=== PATIENT | male | born 1985 | race Caucasian/White ===

== ENCOUNTER 2016-09-20 22:26 | Emergency (ER) | payer MEDICAID ==
[~2016-09-20] VITALS: Ht 188 cm; Wt 129.7 kg
[~2016-09-20 22:26] MED LIST: ATIVAN GENERIC0.5 MG PO; CLONAZEPAM0.5 M1 PO; DULOXETINE HYDR20 MG PO; DULOXETINE60 MG PO; FLAGYL500 M1 PO; LISINOPRIL20 MG PO; OMEPRAZOLE20 MG PO; PAROXETINE HCL30 MG PO; PROTONIX 40MG T40 MG PO; QUETIAPINE FUM300 M1 PO; ULORIC80 MG PO; ZANTAC 150150 MG PO; ZOLOFT100 MG PO
--- NOTE | 2016-09-20 22:46 | Emergency Room Report ---
History of Present Illness Time Seen by [id number] Presenting Problem in Triage Pt arrived:Walked Presenting Problem:C/O LOW BACK PAIN SINCE 09/18/16 AND WAS SEEN BY ADAL AGUILAR AND TREATED FOR MUSCLE STRAIN. 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 Onset of symptoms date/time:09/18/16/ or onset unknown for:MEDICAL HX UNKNOWN Treatment Prior to Arrival: SEEN BY ADAL AGUILAR OIL WELL SERVICES SUPERVISOR Provided by:NURSE Sepsis Risk Assessment: Temp: 98.2 B/P: 146/91 MAP: 109 Pulse: 95 Resp: 20 Recent fever? N Clinical Suspician of Infection? N Mental Status: 1 - Regular (Normal Baseline) Sepsis Risk:Possible Sepsis Risk Have you (or family members/close friends) recently traveled outside the [place]? N If Yes, where/when: Have you had exposure to infectious disease within the past month? N TB? Other? Specify: Source patient, RN notes reviewed, family, old records Exam Limitations no limitations Comment rt flank pain over the last 2 days with no fever or rash and no trauma and no relief with meds at home - pt was seen by pcp wednesday for this - pt with 1 episode of hematuria- no hx of kidney stone Cardiac Chest Pain Chest pain indicative of cardiac No Timing/Duration this evening Severity moderate ALLERGIES Coded Allergies: codeine (THROAT SWELL/HIVES 11/04/15) Home Medications Active Scripts Pantoprazole Sodium (Protonix 40MG TAB) 40 MG PO DAILY #15 TAB Prov: 12/15/14 Reported Medications PAROXETINE HCL (Paroxetine HCl) 15 MG PO DAILY #30 TAB Febuxostat (Uloric) 80 MG PO DAILY #30 Lorazepam (Ativan) 0.5 MG PO BID #90 History Medical History General CAD? No Angina: No MS: No Hypertension? Yes Hyperlipidemia? No CHF? No DVT? No PE? No COPD? No Asthma? No Anemia? No GERD? Yes Gastric ulcers? No GI Bleed? No Hernia? No Thyroid Problems? No Hypothyroidism? No CVA? No Seizures? No Diabetes? No Insulin Dependent: No Insulin Pump: No Home FSBS? No Renal Insuffiency? No End Stage Renal Disease? No UTI? No Stones? No BPH? No GB Disease: No Nephritic Syndrome? No Asplenia? No Hepatitis? No Sickle Cell Disease? No Arthritis? No Migraines? No Cataracts? No Glaucoma? No MRSA? No HIV? No TB? No Anxiety? Yes Depression? Yes Cancer? No More? Yes Additional hx: GOUT Immunization Hx DT/Tetanus > 10 Years Ago Surgical Hx Previous Surgery?Y [place] Tooth Extraction Social History Smoking Hx Smoker: Never Smoker Tobacco: No Alcohol Alcohol: No Drugs none Review of Systems All Other Systems Reviewed and Negative Constitutional denies fever Eyes denies drainage ENT denies: ear pain, epistaxis. Respiratory denies cough, denies shortness of breath, denies wheezing Cardiovascular denies chest pain, denies palpitations, denies syncope Gastrointestinal see HPI, denies diarrhea, nausea, denies vomiting Genitourinary see HPI, hematuria. denies: dysuria, frequency, hesitancy. Musculoskeletal see HPI, back pain, denies joint pain, denies joint swelling, denies neck pain Skin denies rash Psychiatric/Neurological denies seizure Physical Exam Vital Signs Vital Signs Date Time Temp Pulse Resp B/P Pulse O2 O2 Flow FiO2 Ox Delivery Rate 09/20 2322 96 20 135/71 95 09/20 2257 20 09/20 2232 98.2 95 20 146/91 97 - WBC >12,000 or <4,000 or 10% bands? 2 or more SIRS Criteria Met? B/P:135/71 MAP:109 Creatinine >2.0? UA output<0.5ml/kg/hr for 2 hrs? Platelet count >100,000? Lactate >2.0mmol/1? INR >1.2 or PTT > than 60 sec? Evidence of Organ Dysfunction? Provider documented clinical suspician of infection? N Sepsis Criteria Count: 2 Sepsis Risk: Possible Sepsis Risk General Appearance no apparent distress Eye Exam - bilateral eye PERRL, bilateral eye EOMI Ear, Nose, Throat normal ENT inspection Neck supple Respiratory Status No: respiratory distress. Cardiovascular regular rate/rhythm Peripheral Pulses Pulses normal Yes Gastrointestinal soft, no organomegaly, no pulsatile mass, no guarding, no rebound Back no CVA tenderness, no vertebral tenderness, bowel/bladder continent, gait normal, strt leg raising(R)-ABNL, decreased range of motion Extremities normal inspection Strength 4 Upper Ext (L), 4 Upper Ext (R), 4 Lower Ext (L), 4 Lower Ext (R) Neurologic alert, electric installer II-XII nml as tested, no motor/sensory deficits Reflexes Reflexes normal No Mental status normal mood/affect Skin intact, no rash cons.w/shingles Medical Decision Making LABS/Meds/Orders Pt receiving controlled substance in ED? No Results/Orders Laboratory Tests 09/20/162250: Sodium 139, Potassium 3.7, Chloride 100, Carbon Dioxide 28, BUN 9, Creatinine 1.1, Estimated Creat Clear 175, Estimated GFR (MDRD) 77, Glucose 137 H, Calcium 9.0, Total Bilirubin 0.4, AST 24, ALT 55, Alkaline Phosphatase 86, Total Protein 9.8 H, Albumin 4.7, Globulin 5.1 H, Albumin/Globulin Ratio 0.9 L, WBC 9.3, RBC 5.63, Hgb 15.2, Hct 45.7, MCV 81.2 L, RDW 14.4, Plt Count 331, MPV 7.5, Gran % 73.9, Gran # 6.9, Lymphocytes % 22.0, Monocytes % 3.4, Eosinophils % 0.2, Basophils % 0.5, Lymphocytes # 2.1, Monocytes # 0.3, Eosinophils # 0.0, Basophils # 0.0, PUBS MCHC 33.2, MCH 27.0 09/20/162242: Urine Color YELLOW, Urine Appearance SL CLOUDY, Urine pH 5.5, Ur Specific [place] >= 1.030, Urine Protein NEGATIVE, Urine Ketones NEGATIVE, Urine Blood 3+ H, Urine Nitrate NEGATIVE, Urine Bilirubin NEGATIVE, Urine Urobilinogen 0.2, Ur Leukocyte Esterase NEGATIVE, Urine RBC 20-50, Urine WBC OCC, Urine Mucus 4+, Urine Glucose NEGATIVE Current Medication Orders Sig/Jaydon Start time Last Medication Dose Route Stop Time Status Admin Ketorolac 30 MG ONCE ONE 09/20 2299 DC 09/20 Tromethamine IV 09/20 Ondansetron HCl 4 MG ONCE ONE 09/20 2299 DC 09/20 IV 09/20 Ketorolac 0 .STK-MED ONE 09/21 2255 DC Tromethamine .ROUTE Ondansetron HCl 0 .STK-MED ONE 09/20 2254 DC .ROUTE Sodium Chloride 10 ML PRN PRN 09/20 2244 AC IV 09/22 2243 Orders Procedure Date/time Status DIET-NOTHING BY MOUTH 09/[address] ABD & PELVIS W/O CONTRAST 09/[address] ABD/PELVIS REQ 09/20 2244 Active IV SALINE LOCK 09/20 2244 Active URINALYSIS/COMPLETE 09/20 2244 Complete CBC WITH AUTO DIFF 09/20 2244 Complete CHEM 12 PROFILE 09/20 2244 Complete XRAY/CT/US XRAY/CT/US CT abdomen, pelvis CT interpretation by discussed w/radiologist Time results known: 2350 CT Results abnormal Departure Departure Time of Disposition 2350 Disposition DC Home or Self Care(routine) Clinical Impression Primary Impression: Lumbar disc disease with radiculopathy Secondary Impressions: Hematuria Qualifiers: Hematuria type: asymptomatic microscopic Qualified Code: R31.21 - Asymptomatic microscopic hematuria Condition STABLE Referrals ADAL SPARROW APRN (Family) Patient Instructions DI for Low Back Pain Additional Instructions use meds and see pcp for follow up Discharge Counseling Counseled pt/family regarding diagnosis, test results, medications/RX, follow up needs Prescriptions Current Visit Scripts Prednisone (Prednisone 20MG) 20 MG PO BID #10 TAB ED Critical Care Critical Care No at 2519
[2016-09-20 22:51] LABS: URINE BILIRUBIN - DIPSTICK NEGATIVE (NEG); URINE BLOOD 3+ (NEG)
[2016-09-20 23:00] LABS: HEMOGLOBIN 15.2 g/dL (14.1-18.0); LYMPH # 2.1 K/mm3 (0.7-4.5)
[2016-09-20] MEDS ORDERED: PREDNISONE 20MG20 MG PO (23:58)
[2016-09-21 00:25] VITALS: BP 128/71
--- NOTE | 2016-09-21 06:29 | RADIOLOGY REPORT PS360 ---
CT ABD PELVIS W/O CONTRAST CLINICAL INDICATION: Right flank pain R-FLANK PAIN ORDERING PHYSICIAN: Ian Thorne MD PATIENT AGE: 31 years COMPARISON: 08/24/2016 TECHNIQUE: Axial images obtained with sagittal and coronal reformats. PROCEDURE: Oral Contrast: None IV Contrast: None . FINDINGS: Lower thorax: Minimal fibrotic changes are present in the left lung base. Calcified granulomas are present in the left lower lobe. Abdomen and pelvis: Diffuse fatty liver involvement. No focal space-occupying lesions of the liver apparent. The spleen is slightly enlarged at 14 cm. The adrenal glands, pancreas, and gallbladder are unremarkable. Scattered small lymph nodes present in the mesentery's. No renal calculi or hydronephrosis. No ureteral calculi. Unremarkable urinary bladder. No intestinal obstruction or free air. Unremarkable appendix. No evidence of diverticulitis. No pelvic mass or focal inflammatory change. Tiny umbilical hernia containing fat. No acute bony anomalies. Broad-based bulging disc eccentric to the right at L5-S1 IMPRESSION: No acute intra-abdominal or pelvic pathology.
--- OUTSIDE RECORDS SUMMARY | 2016-09-21 20:29 | External Medical Summary Rpt ---
Author Author , TANYA MARTÍNEZ Address Unknown Phone [email or web address] Care Team Providers Care Web Application Dev Specialist Name Role Phone BELEN GARCIA, BEELN Unavailable Unavailable [facility] REECE ALL, REECE ALL Unavailable Unavailable [facility] Unavailable Unavailable SERVICE, [facility] Unavailable Unavailable PHYSICIAN PRA, [facility] PHYSICIAN PRA [facility], Unavailable Unavailable [facility] ARNAUD AGNIESZKA, ARNAUD Unavailable Unavailable AGNIESZKA [facility] CARMEN, Unavailable Unavailable [facility] CARMEN BRIGHT JANIS, BRIGHT Unavailable Unavailable JANIS [facility] Unavailable Unavailable [facility], [facility] ANDREWS, ANDREWS Unavailable Unavailable ANDREWS NAN, ANDREWS Unavailable Unavailable NAN [facility] Unavailable Unavailable IMAGING ASS, [facility] Unavailable Unavailable HOLDINGS, [facility] Unavailable Unavailable HOLDINGS, [facility] Unavailable Unavailable AMBULANCE SE, [facility] Unavailable Unavailable AMBULANCE SE, [facility] AMBULANCE SE [facility] Unavailable Unavailable HEALTH, [facility] Unavailable Unavailable URGENT TREAT, [facility] Unavailable Unavailable EMS, [facility] Unavailable Unavailable EMS, [facility] THERESA BAN, THERESA BAN Unavailable Unavailable [facility], Unavailable Unavailable [facility] Unavailable Unavailable EQUIPME, [facility] Unavailable Unavailable EQUIP[facility], [facility], [facility], Unavailable Unavailable [facility] Unavailable Unavailable SOLUTIONS IN, [facility] PAT, SWINE[facility] Unavailable Unavailable PAT Purpose Continuity of Care Document - 03-16-2013 through 2016 Problems Code Diagnosis DOS Provider Status G4733 OBSTRUCTIVE 07-08-2016 [facility] E[facility] [id number] ARTHRALGIA 04-13-2016 [facility] TEMPOROMAND SOLUTIONS IBULAR IN JOINT J060 ACUTE 04-02-2016 [facility] Y[facility] SOLUTIONS IN J208 ACUTE 04-02-2016 [facility] DUE TO SOLUTIONS OTHER SPEC IN ORGANISMS K210 GASTRO-ESOP 04-02-2016 [facility] REFLUX SOLUTIONS DISEASE W/ IN ESOPHAGITIS R05 COUGH 09-16-2015 [facility] URGENT TREAT R61 GENERALIZED 09-16-2015 [facility] HYPERHIDROS URGENT IS TREAT I10 ESSENTIAL 09-05-2015 LAB [facility] PRIMARY [facility] HYPERTENSIO HOLDINGS N J301 ALLERGIC 09-05-2015 [facility] DUE TO URGENT POLLEN TREAT R1031 RIGHT LOWER 09-05-2015 [facility] PAIN URGENT TREAT R195 OTHER FECAL 09-05-2015 LAB А[facility]ДРЕЙ [facility] ABNORMALITI HOLDINGS ES J069 ACUTE UPPER 08-27-2015 [facility]AT[facility] PHYS INFECTION UNSPECIFIED M791 MYALGIA 08-27-2015 [facility] R0602 SHORTNESS 08-27-2015 [facility] RAD[facility]OLOG[facility] R062 WHEEZING 08-27-2015 [facility] N EMERGENCY PHYS R509 FEVER 08-27-2015 [facility] UNSPECIFIED [facility] EMS R6889 OTHER 08-27-2015 [facility] EMS AND SIGNS R072 PRECORDIAL 03-04-2015 [facility] URGENT TREAT J302 OTHER 02-27-2015 [facility] ALLERGIC URGENT RHINITIS TREAT 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 02-18-2015 [facility] BEHAVIOR OF URGENT SKIN TREAT H9203 OTALGIA 02-18-2015 [facility] URGENT TREAT J0100 ACUTE 02-18-2015 [facility] MAXILLARY [facility] SINUSITIS URGENT UNSPECIFIED TREAT K219 GASTRO-ESOP 01-09-2015 [facility]UX REGIONAL DISEASE PHYSICIAN WITHOUT PRA ESOPHAGITIS R109 UNSPECIFIED 01-09-2015 [facility] ABDOMINAL REGIONAL PAIN PHYSICIAN PRA R55 SYNCOPE AND 12-15-2014 [facility] AMBULANCE SERVICE 82970 ACUTE GOUTY 09-26-2014 [facility] ARTHROPATHY URGENT TREAT 40436 OTHER 09-26-2014 [facility] MALAISE AND [facility] FATIGUE URGENT TREAT 5180 PULMONARY 09-07-2014 [facility] 7802 SYNCOPE AND 09-07-2014 [facility] 7804 DIZZINESS 03-08-2014 [facility] N EMERGENCY GIDDINESS PHYS 9778 POISONING 03-08-2014 [facility] OTHER SPEC N EMERGENCY DRUGS&MEDIC PHYS INAL SUBSTANCES 9779 POISONING 03-08-2014 [facility] AMBULANCE DRUG/MEDICI SE NAL SUBSTANCE E9805 POISONING 03-08-2014 [facility] BY UNS DRUG N EMERGENCY OR PHYS MEDICINE-UN DETERM CAUSE 2749 GOUT, 12-25-2013 [facility] UNSPECIFIED HOSPITAL 86486 GENERALIZED 12-25-2013 [facility] ANXIETY HOSPITAL DISORDER 4779 ALLERGIC 12-25-2013 [facility] RHINITIS HOSPITAL CAUSE UNSPECIFIED 65286 CONJUNCTIVA 09-24-2013 [facility] EMERGENCY HEMORRHAGE PHYS 15187 REFLUX 04-19-2013 [facility] ESOPHAGITIS [facility] 08616 NAUSEA 04-19-2013 [facility] ALONE [facility] 2724 OTHER AND 03-24-2013 [facility] HYPERLIPIDE HEALTH RISA Medications Na ND Rx Da Fi Fi Am Da Di Ph RX Ph St me C No te ll ll ou ys ag ar # ys at rm s nt no ma ic us Or Da si cy ia de te s n re d ME 29 07 08 30 10 00 SO Ac TR 30 -1 -0 .0 00 PE ti ON 00 0- 4- 00 00 RS ve ID 22 20 20 56 AZ 70 17 17 76 FA OL 5 89 DE E LY [address] MG UG TA BL ET UL 64 06 07 30 30 00 SO Ac OR 76 -2 -2 .0 00 PE ti IC 40 6- 1- 00 00 RS ve 67 20 20 55 80 73 17 17 46 FA 0 36 DE MG LY TA DR BL UG ET PA 65 06 07 30 30 00 SO Ac NT 86 -2 -2 .0 00 PE ti OP 20 6- 1- 00 00 RS ve RA 56 20 20 55 ZO 09 17 17 65 FA LE 0 [address] LY SO D [address] DR UG 40 MG TA B PA 00 06 07 30 30 00 SO Ac RO 37 -0 -0 .0 00 PE ti XE 87 7- 7- 00 00 RS ve TI 00 20 20 54 NE 49 17 17 57 FA 3 06 DE HC LY L 40 DR UG MG TA BL ET AR 31 05 05 30 30 00 SO Ac IP 72 -0 -2 .0 00 PE ti IP 20 2- 6- 00 00 RS ve RA 83 20 20 56 ZO 03 17 17 27 FA LE [address] MG UG TA BL ET AR 65 04 05 30 30 00 SO Ac IP 16 -0 -0 .0 00 PE ti IP 20 5- 5- 00 00 RS ve RA 89 20 20 54 ZO 80 17 17 57 FA LE [address] MG UG TA BL ET PA 00 04 05 30 30 00 SO Ac RO 37 -0 -0 .0 00 PE ti XE 87 5- 5- 00 00 RS ve TI 00 20 20 54 NE 49 17 17 57 FA 3 06 DE HC LY L 40 DR UG MG TA BL ET PA 65 04 05 30 30 00 SO Ac NT 86 -0 -0 .0 00 PE ti OP 20 5- 5- 00 00 RS ve RA 56 20 20 55 ZO 09 17 17 65 FA LE 0 [address] DE LY SO D [address] DR UG 40 MG TA B LO 69 04 05 90 30 00 SO Ac RA 31 -1 -0 .0 00 PE ti ZE 50 4- 5- 00 00 RS ve PA 90 20 20 56 M 41 17 17 14 FA 0. 0 14 DE [address] TA UG BL ET IA 00 02 03 55 10 00 SO Ac ED 05 -2 -2 .0 00 PE ti NI 44 7- 4- 00 00 RS ve SO 72 20 20 55 NE 83 17 17 73 FA 5 [address] TA UG BL ET AM 65 02 03 20 10 00 SO Ac OX 86 -1 -1 .0 00 PE ti IC 20 6- 0- 00 00 RS ve IL 01 20 20 55 LI 50 17 17 64 FA N 1 98 DE [address] UG TA BL ET IA 00 02 03 12 5 00 SO Ac OM 60 -1 -1 0. 00 PE ti ET 31 6- 0- 00 00 RS ve KNIGHT 58 20 20 0 55 ZI 65 17 17 64 FA NE 8 99 DE -D LY M SY DR RU UG P PA 65 02 30 30 00 SO Ac NT 86 -1 -1 .0 00 PE ti OP 20 6- 0- 00 00 RS ve RA 56 20 20 55 ZO 09 17 17 65 FA LE 0 00 DE LY SO D [address] DR UG 40 MG TA B UL 64 01 02 30 30 00 SO Ac OR 76 -3 -2 .0 00 PE ti IC 40 1- 4- 00 00 RS ve 67 20 20 55 80 73 17 17 46 FA 0 36 DE MG LY TA DR BL UG ET LO 45 01 02 30 30 00 SO Ac RA 80 -2 -1 .0 00 PE ti TA 20 3- 7- 00 00 RS ve DI 65 20 20 54 NE 08 17 17 57 FA 7 07 DE [address] UG TA BL ET PA 00 01 02 30 30 00 SO Ac RO 37 -2 -1 .0 00 PE ti XE 87 3- 7- 00 00 RS ve TI 00 20 20 54 NE 49 17 17 57 FA 3 06 DE HC LY L 40 DR UG MG TA BL ET AR 65 01 02 30 30 00 SO Ac IP 16 -2 -1 .0 00 PE ti IP 20 3- 7- 00 00 RS ve RA 89 20 20 54 ZO 80 17 17 57 FA LE [address] MG UG TA BL ET ZO 00 01 02 30 30 00 SO Ac LP 37 -2 -1 .0 00 PE ti ID 85 6- 7- 00 00 RS ve EM 31 20 20 55 00 17 17 46 FA TA 1 37 DE RT LY RA TE DR UG 10 MG TA BL ET AM 65 12 01 20 10 00 SO Ac OX 86 -2 -1 .0 00 PE ti IC 20 1- 3- 00 00 RS ve IL 01 20 20 55 LI 50 16 17 17 FA N 1 32 DE [address] UG TA BL ET ME 69 12 01 30 30 00 SO Ac LO 09 -2 -1 .0 00 PE ti XI 70 1- 3- 00 00 RS ve CA 15 20 20 55 M 91 16 17 17 FA 15 [address] TA UG BL ET IA 00 12 01 12 6 00 SO Ac OM 60 -2 -1 0. 00 PE ti ET 31 1- 3- 00 00 RS ve KNIGHT 58 20 20 0 55 ZI 65 16 17 17 FA NE 8 34 DE -D LY M SY DR RU UG P LO 69 12 01 90 30 00 SO Ac RA 31 -2 -1 .0 00 PE ti ZE 50 1- 3- 00 00 RS ve PA 90 20 20 55 M 41 16 17 17 FA 0. 0 35 DE [address] TA UG BL ET Results Labs Lab Lab Date Result Refere Interp Status Commen Order Detail nces retati t Range on Urinalysis dipstick W Reflex Microscopic panel in Urine (08-24-2016 02:20) Appeara CLEAR CLEAR complet nce of 017 ed Urine 02:20 Amorpho TRACE NONE complet us 017 ed sedimen 02:20 t [Presen ce] in Urine sedimen t by Light microsc opy Bilirub NEGATIV NEG complet in 017 E ed [Presen 02:20 ce] in Urine by Test strip Erythro 07-10-2 NEGATIV NEG complet cytes 017 E ed [Presen 02:20 ce] in Urine Color 07-10-2 YELLOW YELLOW complet of 017 ed Urine 02:20 Hyaline 07-10-2 5-10 NONE complet casts 017 ed [Presen 02:20 ce] in Urine sedimen t by Light microsc opy Ketones 07-10-2 NEGATIV NEG complet 017 E ed [Presen 02:20 ce] in Urine by Automat ed test strip Mucus 07-10-2 NEGATIV NEG complet [Presen 017 E ed ce] in 02:20 Urine sedimen t by Light microsc opy Mucus 07-10-2 2+ NONE complet [Presen 017 ed ce] in 02:20 Urine sedimen t by Light microsc opy Nitrite 07-10-2 NEGATIV NEG complet 017 E ed [Presen 02:20 ce] in Urine by Test strip Epithel 07-10-2 5-10 OCC complet ial 017 ed cells.s 02:20 quamous [Presen ce] in Urine sedimen t by Microsc opy high power field Urobili 07-10-2 0.2 NEG complet nogen 017 ed [Presen 02:20 ce] in Urine by Test strip Leukocy 07-10-2 5-10 O complet lauryn 017 wbc/hpf ed [#/volu 02:20 me] in Urine Procedures Procedure DOS Code Location Performer Comment CONTINUOU E0601 VERNELLMARIA VICTORIA MATT S 7 HOME HOME POSITIVE MEDICAL MEDICAL AIRWAY EQUIPME EQUIPME PRESSURE DEVICE FILTER A7038 [facility] DISPBL 7 HOME HOME USED MEDICAL MEDICAL W/POS EQUIPME EQUIPME ARWAY PRESSURE DEVICE TUBING A7037 [facility] USED WITH 7 HOME HOME POSITIVE MEDICAL MEDICAL AIRWAY EQUIPME EQUIPME PRESSURE DEVICE CONTINUOU E0601 VERNELLMARIA VICTORIA MATT S 7 HOME HOME POSITIVE MEDICAL MEDICAL AIRWAY EQUIPME EQUIPME PRESSURE DEVICE CONTINUOU E0601 VERNELLMARIA VICTORIA MATT S 7 HOME HOME POSITIVE MEDICAL MEDICAL AIRWAY EQUIPME EQUIPME PRESSURE DEVICE HUMDIFIR E0562 VER[facility]LL VERNELL HEATED 7 HOME HOME USED MEDICAL MEDICAL W/POS EQUIPME EQUIPME ARWAY PRESSURE DEVICE FILTER A7038 [facility] MATT DISPBL 7 HOME HOME USED MEDICAL MEDICAL W/POS EQUIPME EQUIPME ARWAY PRESSURE DEVICE FILTER A7039 [facility] MATT NON 7 HOME HOME DISPBL MEDICAL MEDICAL USED EQUIPME EQUIPME W/POS ARWAY PRESS DEVICE NASL A7034 [facility] MATT INTRFCE 7 HOME HOME POS ARWAY MEDICAL MEDICAL PRSS EQUIPME EQUIPME DEVC W/WO HEAD STRAP HEADGEAR A7035 [facility] MATT USED 7 HOME HOME W/POSITIV MEDICAL MEDICAL E AIRWAY EQUIPME EQUIPME PRESSURE DEVICE CONTINUOU E0601 [facility] MATT S 7 HOME HOME POSITIVE MEDICAL MEDICAL AIRWAY EQUIPME EQUIPME PRESSURE DEVICE TUBING A7037 [facility] MATT USED WITH 7 HOME HOME POSITIVE MEDICAL MEDICAL AIRWAY EQUIPME EQUIPME PRESSURE DEVICE SLEEP STD 75692 [facility] AIRFLOW 7 [facility]OS[facility] HRT INC INC RATE&O2 SAT EFFORT UNATT COLLECTIO 79415 DAHIANA Gardner VENOUS 6 [facility] BLOOD URGENT VENIPUNCT TREAT URE HANDLG&/O 95241 DAHIANA SPARROW R CONVEY 6 [facility] OF SPEC URGENT FOR TR TREAT OFFICE TO LAB COMPREHEN 80657 LAB АНДРЕЙ LAB АНДРЕЙ SIVE 6 [facility] HOLDINGS PANEL AMBULANCE A0429 [facility] SERVICE [address] [place] [address] EMERGENCY EMS EMS TRANSPORT RADIOLOGI 05717 [facility] C EXAM 6 RADIOLOGY JANIS CHEST 2 VIEWS FRONTAL&L ATERAL GROUND A0425 [facility] [facility] EMS EMS MILE RADIOLOGI 18024 [facility] C EXAM 6 [facility]OS[facility] CHEST 2 INC INC VIEWS FRONTAL&L ATERAL EGD 07283 [facility] TRANSORAL 5 REGIONAL GRE BIOPSY PHYSICIAN SINGLE/[place] [address] [facility] ALL HEAD/BRAI 5 MEDICAL N W/O IMAGING CONTRAST ASS MATERIAL RADIOLOGI 77594 [facility] ALL C 5 MEDICAL EXAMINATI IMAGING ON CHEST ASS [place] FRONTAL ECG 65371 [facility] ROUTINE 5 GUILLERMINA PAT ECG EMERGENCY W/LEAST PHYS 12 LDS I&R ONLY AMB A0427 DAHIANA TALBOT SERVICE 5 [facility] ALS AMBULANCE AMBULANCE EMERGENCY SE SE TRANSPORT LEVEL 1 GROUND A0425 DAHIANA TALBOT MILEAGE 5 [facility] PER AMBULANCE [place] [address] [facility] BLOOD/URI [address] [place] [address] C ACID COLLECTIO [address] [facility] N VENOUS [address] [place] [address] BLOOD VENIPUNCT URE THERAPEUT [address]ULTANA [address] TIC/DX HEALTH INJECTION SUBQ/IM INJECTION J3301 DAHIANA [address] ACETONIDE NOS 10 MG THERAPEUT 83893 DAHIANA ANDREWS IC [address] [place] [address] [facility] TIC/DX HEALTH INJECTION SUBQ/IM INJECTION J3301 DAHIANALUIZ SPARROW [address] [place] [address] ACETONIDE NOS 10 MG Encounters Encounter Start End Date Code Location Performer Type Date OFFICE 62502 SHANNAN SPARROW OUTKEITHEN 7 7 HEALTH T VISIT SOLUTIONS 25 IN MINUTES OFFICE 17816 SHANNAN CRUZ 7 7 HEALTH T VISIT SOLUTIONS 25 IN MINUTES [facility] DIMITRI - 7 7 [facility] OUTPATIEN INC T OFFICE 64265 DAHIANA SPARROW OUTPATIEN 6 6 [facility] T VISIT URGENT 25 TREAT MINUTES OFFICE 47584 DAHIANA SPARROW OUTPATIEN 6 6 [facility] T VISIT URGENT 25 TREAT MINUTES EMERGENCY 64935 [facility] 6 6 GUILLERMINA RADHA VISIT EMERGENCY HIGH PHYS SEVERITY& THREAT [facility] DIMITRI - 6 6 [facility] OUTPATIEN INC T OFFICE 93724 DAHIANA SPARROW OUTPATIEN 6 6 [facility] T VISIT URGENT 25 TREAT MINUTES OFFICE 69688 DAHIANA SPARROW OUTPATIEN 6 6 COUNTY NAN T VISIT URGENT 25 TREAT MINUTES OFFICE 73228 DAHIANA SPARROW OUTPATIEN 6 6 COUNTY NAN T VISIT URGENT 25 TREAT MINUTES OFFICE 05920 DAHIANA SPARROW OUTPATIEN 5 5 COUNTY NAN T VISIT URGENT 15 TREAT MINUTES EMERGENCY 75684 [facility] 5 5 GUILLERMINA PAT DEPARTMEN EMERGENCY T VISIT PHYS HIGH/URGE NT SEVERITY [facility] 4 4 HOSPITAL OFFICE 27813 [facility] RODRIGUES OUTPATIEN 4 4 ADULT T VISIT PRIMARY 15 CARE CLI MINUTES EMERGENCY 15537 [facility] 4 4 GUILLERMINA AGNIESZKA DEPARTMEN EMERGENCY T VISIT PHYS MODERATE SEVERITY OFFICE 35058 DAHIANAYao [facility] OUTPATIEN 4 4 [facility] CARMEN T VISIT RURAL 15 HEALTH MINUTES OFFICE [id number] DAHIANA [facility] OUTPATIEN 4 4 [facility] CARMEN T VISIT RURAL 15 HEALTH MINUTES OFFICE 63723 DAHIANALUIZ SPARROW OUTPATIEN 4 4 COUNTY NAN T VISIT RURAL 10 HEALTH MINUTES OFFICE 11218 DAHIANALUIZ SPARROW OUTPATIEN 4 4 COUNTY NAN T NEW 30 RURAL MINUTES [facility]
--- OUTSIDE RECORDS SUMMARY | 2016-09-21 20:29 | External Medical Summary Rpt ---
Author Author , TANYA MARTÍNEZ Address Unknown Phone [email or web address] Care Team Providers Care Leather Drier Name Role Phone BELEN GARCIA, BELEN Unavailable Unavailable [facility] REECE ALL, REECE ALL Unavailable Unavailable [facility] Unavailable Unavailable SERVICE, [facility] Unavailable Unavailable PHYSICIAN PRA, [facility] PHYSICIAN PR[facility], Unavailable Unavailable [facility] ARNAUD AGNIESZKA, ARNAUD Unavailable Unavailable AGNIESZKA SULTANA CARMEN, Unavailable Unavailable SULTANA CARMEN BRIGHT JANIS, BRIGHT Unavailable Unavailable JANIS [facility] Unavailable Unavailable [facility], [facility] ANDREWS, ANDREWS Unavailable Unavailable ANDREWS NAN, ANDREWS Unavailable Unavailable NAN [facility] Unavailable Unavailable IMAGING ASS, [facility] Unavailable Unavailable HOLDINGS, [facility] Unavailable Unavailable HOLDINGS, [facility] Unavailable Unavailable AMBULANCE SE, [facility] Unavailable Unavailable AMBULANCE SE, [facility] SE [facility] Unavailable Unavailable HEALTH, [facility] HEALTH [facility] Unavailable Unavailable URGENT TREAT, [facility] Unavailable [facility]available EMS, [facility] Unavailable Unavailable EMS, [facility] THERESA BAN, THERESA BAN Unavailable Unavailable [facility], Unavailable Unavailable [facility] Unavailable Unavailable E[facility], [facility] Unavailable Unavailable [facility], [facility], [facility], Unavailable Unavailable [facility] Unavailable Unavailable SOLUTIONS IN, [facility] PAT, SWINE[facility] Unavailable Unavailable PAT Purpose Continuity of Care Document - 03-16-2013 through 2016 Problems Code Diagnosis DOS Provider Status G4733 OBSTRUCTIVE 07-08-2016 [facility] [id number] ARTHRALGIA 04-13-2016 [facility] TEMPOROMAND SOLUTIONS IBULAR IN JOINT J060 ACUTE 04-02-2016 [facility] YNGIT[facility] SOLUTIONS IN J208 ACUTE 04-02-2016 [facility] DUE TO SOLUTIONS OTHER SPEC IN ORGANISMS K210 GASTRO-ESOP 04-02-2016 [facility] REFLUX SOLUTIONS DISEASE W/ IN ESOPHAGITIS R05 COUGH 09-16-2015 [facility] URGENT TREAT R61 GENERALIZED 09-16-2015 [facility] HYPERHIDROS URGENT IS TREAT I10 ESSENTIAL 09-05-2015 LAB А[facility]ДР[facility]Й PRIMARY [facility] HYPERTENSIO HOLDINGS N J301 ALLERGIC 09-05-2015 [facility] DUE TO URGENT POLLEN TREAT R1031 RIGHT LOWER 09-05-2015 [facility] QUADRANT [facility] PAIN URGENT TREAT R195 OTHER FECAL 09-05-2015 LAB АНДРЕЙ [facility] ABNORMALITI HOLDINGS ES J069 ACUTE UPPER 08-27-2015 [facility] INFECTION UNSPECIFIED M791 MYALGIA 08-27-2015 [facility] R0602 SHORTNESS 08-27-2015 [facility] RAD[facility]OLOG[facility] R062 WHEEZING 08-27-2015 [facility] N EMERGENCY PHYS R509 FEVER 08-27-2015 [facility] UNSPECIFIED [facility] EMS R6889 OTHER 08-27-2015 [facility] EMS AND SIGNS R072 PRECORDIAL 03-04-2015 [facility] URGENT TREAT J302 OTHER 02-27-2015 [facility] ALLERGIC URGENT RHINITIS TREAT 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 02-18-2015 [facility] BEHAVIOR OF URGENT SKIN TREAT H9203 OTALGIA 02-18-2015 [facility] URGENT TREAT J0100 ACUTE 02-18-2015 [facility] MAXILLARY [facility] SINUSITIS URGENT UNSPECIFIED TREAT K219 GASTRO-ESOP 01-09-2015 [facility] DISEASE PHYSICIAN WITHOUT PRA ESOPHAGITIS R109 UNSPECIFIED 01-09-2015 [facility] ABDOMINAL REGIONAL PAIN PHYSICIAN PRA R55 SYNCOPE AND 12-15-2014 [facility] AMBULANCE SERVICE 42964 ACUTE GOUTY 09-26-2014 [facility] ARTHROPATHY URGENT TREAT 09428 OTHER 09-26-2014 [facility] MALAISE AND [facility] FATIGUE URGENT TREAT 5180 PULMONARY 09-07-2014 [facility] 7802 SYNCOPE AND 09-07-2014 [facility] 7804 DIZZINESS 03-08-2014 [facility] GIDDINESS PHYS 9778 POISONING 03-08-2014 [facility] OTHER SPEC N EMERGENCY DRUGS&MEDIC PHYS INAL SUBSTANCES 9779 POISONING 03-08-2014 [facility] DRUG/MEDICI SE NAL SUBSTANCE E9805 POISONING 03-08-2014 [facility] UNS DRUG N EMERGENCY OR PHYS MEDICINE-UN DETERM CAUSE 2749 GOUT, 12-25-2013 [facility] UNSPECIFIED HOSPITAL 88280 GENERALIZED 12-25-2013 [facility] ANXIETY HOSPITAL DISORDER 4779 ALLERGIC 12-25-2013 [facility] RHINITIS HOSPITAL CAUSE UNSPECIFIED 26940 CONJUNCTIVA 09-24-2013 [facility] HEMORRHAGE PHYS 75586 REFLUX 04-19-2013 [facility] ESOPHAGITIS [facility] 75658 NAUSEA 04-19-2013 [facility] ALONE [facility] 2724 OTHER AND 03-24-2013 [facility] HYPERLIPIDE HEALTH RISA Medications Na ND [...] 17 17 76 FA OL 5 89 [place] E LY [address] MG UG TA BL ET UL 64 06 07 30 30 00 SO Ac OR 76 -2 -2 .0 00 PE ti IC 40 6- 1- 00 00 RS ve 67 20 20 55 80 73 17 17 46 FA 0 36 AZ MG LY TA DR BL UG ET PA 65 06 07 30 30 00 SO Ac NT 86 -2 -2 .0 00 PE ti OP 20 6- 1- 00 00 RS ve RA 56 20 20 55 ZO 09 17 17 65 FA LE 0 [address] [place] LY SO D DR DR UG 40 MG TA B PA 00 06 07 30 30 00 SO Ac RO 37 -0 -0 .0 00 PE ti XE 87 7- 7- 00 00 RS ve TI 00 20 20 54 NE 49 17 17 57 FA 3 06 AZ HC LY L 40 DR UG MG TA BL ET AR 31 05 05 30 30 00 SO Ac IP 72 -0 -2 .0 00 PE ti IP 20 2- 6- 00 00 RS ve RA 83 20 20 56 ZO 03 17 17 27 FA LE 0 [address] MG UG TA BL ET AR 65 04 05 30 30 00 SO Ac IP 16 -0 -0 .0 00 PE ti IP 20 5- 5- 00 00 RS ve RA 89 20 20 54 ZO 80 17 17 57 FA LE 3 [address] MG UG TA BL ET PA 00 04 05 30 30 00 SO Ac RO 37 -0 -0 .0 00 PE ti XE 87 5- 5- 00 00 RS ve TI 00 20 20 54 NE 49 17 17 57 FA 3 06 AZ HC LY L 40 DR UG MG TA BL ET PA 65 04 05 30 30 00 SO Ac NT 86 -0 -0 .0 00 PE ti OP 20 5- 5- 00 00 RS ve RA 56 20 20 55 ZO 09 17 17 65 FA LE 0 00 [place] LY SO D DR DR UG 40 MG TA B LO 69 04 05 90 30 00 SO Ac RA 31 -1 -0 .0 00 PE ti ZE 50 4- 5- 00 00 RS ve PA 90 20 20 56 M 41 17 17 14 FA 0. 0 14 [place] [address] TA UG BL ET TN 00 02 03 55 10 00 SO Ac ED 05 -2 -2 .0 00 PE ti NI 44 7- 4- 00 00 RS ve SO 72 20 20 55 NE 83 17 17 73 FA 5 1 [address] TA UG BL ET AM 65 02 03 20 10 00 SO Ac OX 86 -1 -1 .0 00 PE ti IC 20 6- 0- 00 00 RS ve IL 01 20 20 55 LI 50 17 17 64 FA N 1 98 AZ [address] UG TA BL ET TN 00 02 03 12 5 00 SO Ac OM 60 -1 -1 0. 00 PE ti ET 31 6- 0- 00 00 RS ve KNIGHT 58 20 20 0 55 ZI 65 17 17 64 FA NE 8 99 AZ -D LY M SY DR RU UG P PA 65 02 30 30 00 SO Ac NT 86 -1 -1 .0 00 PE ti OP 20 6- 0- 00 00 RS ve RA 56 20 20 55 ZO 09 17 17 65 FA LE 0 00 [place] LY SO D DR DR UG 40 MG TA B UL 64 01 02 30 30 00 SO Ac OR 76 -3 -2 .0 00 PE ti IC 40 1- 4- 00 00 RS ve 67 20 20 55 80 73 17 17 46 FA 0 36 AZ MG LY TA DR BL UG ET LO 45 01 02 30 30 00 SO Ac RA 80 -2 -1 .0 00 PE ti TA 20 3- 7- 00 00 RS ve DI 65 20 20 54 NE 08 17 17 57 FA 7 07 [place] [address] UG TA BL ET PA 00 01 02 30 30 00 SO Ac RO 37 -2 -1 .0 00 PE ti XE 87 3- 7- 00 00 RS ve TI 00 20 20 54 NE 49 17 17 57 FA 3 06 AZ HC LY L 40 DR UG MG TA BL ET AR 65 01 02 30 30 00 SO Ac IP 16 -2 -1 .0 00 PE ti IP 20 3- 7- 00 00 RS ve RA 89 20 20 54 ZO 80 17 17 57 FA LE 3 [address] MG UG TA BL ET ZO 00 01 02 30 30 00 SO Ac LP 37 -2 -1 .0 00 PE ti ID 85 6- 7- 00 00 RS ve EM 31 20 20 55 00 17 17 46 FA TA 1 37 AZ RT LY RA TE DR UG 10 MG TA BL ET AM 65 12 01 20 10 00 SO Ac OX 86 -2 -1 .0 00 PE ti IC 20 1- 3- 00 00 RS ve IL 01 20 20 55 LI 50 16 17 17 FA N 1 32 [place] [address] UG TA BL ET ME 69 12 01 30 30 00 SO Ac LO 09 -2 -1 .0 00 PE ti XI 70 1- 3- 00 00 RS ve CA 15 20 20 55 M 91 16 17 17 FA 15 5 [address] TA UG BL ET TN 00 12 01 12 6 00 SO Ac OM 60 -2 -1 0. 00 PE ti ET 31 1- 3- 00 00 RS ve KNIGHT 58 20 20 0 55 ZI 65 16 17 17 FA NE 8 34 AZ -D LY M SY DR RU UG P LO 69 12 01 90 30 00 SO Ac RA 31 -2 -1 .0 00 PE ti ZE 50 1- 3- 00 00 RS ve PA 90 20 20 55 M 41 16 17 17 FA 0. 0 35 [place] [address] TA UG BL [...] [employer]WAY EQUIPME EQUIPME PRESSURE DEVICE SLEEP STD 13991 [facility] AIRFLOW 7 [facility] HRT INC INC RATE&O2 SAT EFFORT UNATT COLLECTIO 68444 [facility]NA Gardner VENOUS 6 [facility] BLOOD URGENT VENIPUNCT TREAT URE HANDLG&/O 88219 DAHIANA SPARROW R CONVEY 6 [facility] SPEC URGENT FOR TR TREAT OFFICE TO LAB COMPREHEN 34105 LAB АНДРЕЙ LAB АНДРЕЙ SIVE 6 [facility] HOLDINGS PANEL AMBULANCE A0429 [facility] DEPARTMENT SERVICE [address] [place] [address] EMERGENCY EMS EMS TRANSPORT RADIOLOGI 12936 [facility] EXAM 6 RADIOLOGY JANIS CHEST 2 VIEWS FRONTAL&L ATERAL GROUND A0425 [facility] [address] [facility] [facility] EMS MILE RADIOLOGI 46056 [facility] C EXAM 6 MEM HOSP [facility]OS[facility] CHEST 2 INC INC VIEWS FRONTAL&L ATERAL EGD 51925 [facility] [place] TRANSORAL 5 REGIONAL GRE BIOPSY PHYSICIAN SINGLE/[place] [address] [facility] ALL HEAD/BRAI 5 MEDICAL N W/O IMAGING CONTRAST ASS MATERIAL RADIOLOGI 31371 [place] [facility] C 5 MEDICAL EXAMINATI IMAGING ON CHEST ASS SING[place] VIEW FRONTAL ECG 72400 [facility] ROUTINE 5 GUILLERMINA PAT ECG EMERGENCY W/LEAST PHYS 12 LDS I&R ONLY AMB A0427 DA[facility]NA [facility] SERVICE [address] [facility] ALS AMBULANCE AMBULANCE EMERGENCY SE SE TRANSPORT LEVEL 1 GROUND A0425 DAHIANA TALBOT MILEAGE [address] [facility] PER AMBULANCE [place] [address] [facility] BLOOD/URI [address] [place] [address] C ACID COLLECTIO 31659 [facility] N VENOUS [address] [place] [address] BLOOD VENIPUNCT URE THERAPEUT 59[address] DAHIANA SULTANA [address] TIC/DX HEALTH INJECTION SUBQ/IM INJECTION J3301 DAHIANA [address] ACETONIDE NOS 10 MG THERAPEUT 03107 DAHIANA ANDREWS IC [address] [place] [address] [facility] TIC/DX HEALTH INJECTION SUBQ/IM INJECTION J3301 DAHIANALUIZ SPARROW [address] [place] [address] ACETONIDE NOS 10 MG Encounters Encounter Start End Date Code Location Performer Type Date OFFICE 30913 SHANNAN SPARROW OUTKEITHEN 7 7 HEALTH T VISIT SOLUTIONS 25 IN MINUTES OFFICE 29935 SHANNAN CRUZ 7 7 HEALTH T VISIT SOLUTIONS 25 IN MINUTES [facility] DIMITRI - 7 7 [facility] OUTPATIEN INC T OFFICE 90598 DAHIANA SPARROW OUTPATIEN 6 6 [facility]RGENT 25 TREAT MINUTES OFFICE 26926 DAHIANA SPARROW OUTPATIEN 6 6 [facility]IS[facility]RGENT 25 TREAT MINUTES EMERGENCY 56177 [facility] DEPT 6 6 GUILLERMINA RADHA VISIT EMERGENCY HIGH PHYS SEVERITY& THREAT [facility] - 6 6 [facility] OUTPATIEN INC T OFFICE 94043 DAHIANA SPARROW OUTPATIEN 6 6 [facility] 25 TREAT MINUTES OFFICE 24600 DAHIANA SPARROW OUTPATIEN 6 6 [facility] N[facility] T VISIT URGENT 25 TREAT MINUTES OFFICE 25633 DAHIANA SPARROW OUTPATIEN 6 6 [facility] N[facility] T VISIT URGENT 25 TREAT MINUTES OFFICE 97233 DAHIANA SPARROW OUTPATIEN 5 5 [facility] NAN T VISIT URGENT 15 TREAT MINUTES EMERGENCY 16686 [facility] 5 5 GUILLERMINA PAT DEPARTMEN EMERGENCY T VISIT PHYS HIGH/URGE NT SEVERITY [facility] 4 4 HOSPITAL OFFICE 59671 [facility] OUTPATIEN 4 4 ADULT T VISIT PRIMARY 15 CARE CLI MINUTES EMERGENCY 62011 [facility] 4 4 GUILLERMINA AGNIESZKA DEPARTMEN EMERGENCY T VISIT PHYS MODERATE SEVERITY OFFICE 13945 DAHIANAYao SULTANA OUTPATIEN 4 4 [facility] T VISIT RURAL 15 HEALTH MINUTES OFFICE 60333 DAHIANA SULTANA OUTPATIEN 4 4 [facility] T VISIT RURAL 15 HEALTH MINUTES OFFICE 98210 DAHIANALUIZ SPARROW OUTPATIEN 4 4 COUNTY NAN T VISIT RURAL 10 HEALTH MINUTES OFFICE 07122 DAHIANALUIZ SPARROW OUTPATIEN 4 4 COUNTY NAN T NEW 30 RURAL MINUTES [facility]
--- OUTSIDE RECORDS SUMMARY | 2016-09-21 20:30 | External Medical Summary Rpt ---
Author Author , TANYA MARTÍNEZ Address Unknown Phone [email or web address] Care Team Providers [facility] Television Rental Clerk Name Role Phone BELEN GARCIA, BELEN Unavailable Unavailable RADHA REECE ALL, REECE ALL Unavailable Unavailable [facility] Unavailable Unavailable SERVICE, [facility] Unavailable Unavailable PHYSICIAN PRA, [facility], Unavailable Unavailable [facility] ARNAUD AGNIESZKA, ARNAUD Unavailable Unavailable AGNIESZKA SULTANA CARMEN, Unavailable Unavailable SULTANA CARMEN BRIGHT JANIS, BRIGHT Unavailable Unavailable JANIS [facility] Unavailable Unavailable [facility], [facility] ANDREWS, ANDREWS Unavailable Unavailable ANDREWS NAN, ANDREWS Unavailable Unavailable NAN [facility] Unavailable Unavailable IMAGING [facility], [facility] Unavailable Unavailable HOLDINGS, [facility] Unavailable Unavailable HOLDINGS, [facility] Unavailable Unavailable AMBULANCE SE, [facility] Unavailable Unavailable AMBULANCE SE, [facility] Unavailable [facility]available HEALTH, [facility] Unavailable Unavailable URGENT TREAT, [facility] Unavailable Unavailable [facility], [facility] Unavailable Unavailable EMS, [facility] THERESA BAN, THERESA BAN Unavailable Unavailable [facility], Unavailable Unavailable [facility] Unavailable Unavailable EQUIPME, [facility] Unavailable Unavailable [facility], [facility], [facility]available Unavailable [facility] Unavailable Unavailable SOLUTIONS IN, [facility] PAT, SWINE[facility] Unavailable Unavailable PAT Purpose Continuity of Care Document - 03-16-2013 through 2016 Problems Code Diagnosis DOS Provider Status G4733 OBSTRUCTIVE 07-08-2016 [facility] [id number] ARTHRALGIA 04-13-2016 [facility] TEMPOROMAND SOLUTIONS IBULAR IN JOINT J060 ACUTE 04-02-2016 [facility] YNGITIS SOLUTIONS IN J208 ACUTE 04-02-2016 [facility] DUE TO SOLUTIONS OTHER SPEC IN ORGANISMS K210 GASTRO-ESOP 04-02-2016 [facility] REFLUX SOLUTIONS DISEASE W/ IN ESOPHAGITIS R05 COUGH 09-16-2015 [facility] URGENT TREAT R61 GENERALIZED 09-16-2015 [facility] HYPERHIDROS URGENT IS TREAT I10 ESSENTIAL 09-05-2015 [facility] PRIMARY [facility] HYPERTENSIO HOLDINGS N J301 ALLERGIC 09-05-2015 [facility] DUE TO URGENT POLLEN TREAT R1031 RIGHT LOWER 09-05-2015 [facility] U[facility]ENT TREAT R195 OTHER FECAL 09-05-2015 LAB А[facility]Й [facility] ABNORMALITI HOLDINGS ES J069 ACUTE UPPER 08-27-2015 [facility] EMERGENCY RESPIRATORY PHYS INFECTION UNSPECIFIED M791 MYALGIA 08-27-2015 [facility] EMERGENC[facility] PHYS R0602 SHORTNESS 08-27-2015 [facility] R062 WHEEZING 08-27-2015 [facility] EMERGENCY PHYS R509 FEVER 08-27-2015 [place] [facility] UNSPECIFIED [facility] EMS R6889 OTHER 08-27-2015 [place] [facility] EMS AND SIGNS R072 PRECORDIAL 03-04-2015 [facility] URGENT TREAT J302 OTHER 02-27-2015 [facility] ALLERGIC URGENT RHINITIS TREAT 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 02-18-2015 [facility] BEHAVIOR OF URGENT SKIN TREAT H9203 OTALGIA 02-18-2015 [facility] URGENT TREAT J0100 ACUTE 02-18-2015 [facility] MAXILLARY [facility] URGENT UNSPECIFIED TREAT K219 GASTRO-ESOP 01-09-2015 [facility] DISEASE PHYSICIAN WITHOUT PRA ESOPHAGITIS R109 UNSPECIFIED 01-09-2015 [facility] ABDOMINAL REGIONAL PAIN PHYSICIAN PRA R55 SYNCOPE AND 12-15-2014 [facility] COLLAPSE AMBULANCE SERVICE 92850 ACUTE GOUTY 09-26-2014 [facility] ARTHROPATHY URGENT TREAT 52835 OTHER 09-26-2014 [facility] FATIGUE URGENT TREAT 5180 PULMONARY 09-07-2014 [facility] 7802 SYNCOPE AND 09-07-2014 [facility] 7804 DIZZINESS 03-08-2014 [facility]ENC[facility] GIDDINESS PHYS 9778 POISONING 03-08-2014 [facility] OTHER SPEC N EMERGENCY DRUGS&MEDIC PHYS INAL SUBSTANCES 9779 POISONING 03-08-2014 [facility]/MEDICI SE NAL SUBSTANCE E9805 POISONING 03-08-2014 [facility] UNS DRUG N EMERGENCY OR PHYS MEDICINE-UN DETERM CAUSE 2749 GOUT, 12-25-2013 [facility] UNSPECIFIED HOSPITAL 86917 GENERALIZED 12-25-2013 [facility] ANXIETY HOSPITAL DISORDER 4779 ALLERGIC 12-25-2013 [facility] RHINITIS HOSPITAL CAUSE UNSPECIFIED 55433 CONJUNCTIVA 09-24-2013 [facility] EMERGENCY HEMORRHAGE PHYS 76909 REFLUX 04-19-2013 [facility] ESOPHAGITIS [facility] 66034 NAUSEA 04-19-2013 [facility] 2724 OTHER AND 03-24-2013 [facility] HYPERLIPIDE [facility] RISA Medications Na ND Rx Da Fi [...] 17 17 76 FA OL 5 89 [place] E LY [address] MG UG TA BL ET UL 64 06 07 30 30 00 SO Ac OR 76 -2 -2 .0 00 PE ti IC 40 6- 1- 00 00 RS ve 67 20 20 55 80 73 17 17 46 FA 0 36 KS MG LY TA DR BL UG ET PA 65 06 07 30 30 00 SO Ac NT 86 -2 -2 .0 00 PE ti OP 20 6- 1- 00 00 RS ve RA 56 20 20 55 ZO 09 17 17 65 FA LE 0 00 [place] LY SO D DR DR UG 40 MG TA B PA 00 06 07 30 30 00 SO Ac RO 37 -0 -0 .0 00 PE ti XE 87 7- 7- 00 00 RS ve TI 00 20 20 54 NE 49 17 17 57 FA 3 06 KS HC LY L 40 DR UG MG TA BL ET AR 31 05 05 30 30 00 SO Ac IP 72 -0 -2 .0 00 PE ti IP 20 2- 6- 00 00 RS ve RA 83 20 20 56 ZO 03 17 17 27 FA LE 0 [address] MG UG TA BL ET AR 65 04 05 30 30 00 SO Ac IP 16 -0 -0 .0 00 PE ti IP 20 5- 5- 00 00 RS ve RA 89 20 20 54 ZO 80 17 17 57 FA LE 3 [address] MG UG TA BL ET PA 00 04 05 30 30 00 SO Ac RO 37 -0 -0 .0 00 PE ti XE 87 5- 5- 00 00 RS ve TI 00 20 20 54 NE 49 17 17 57 FA 3 06 KS HC LY L 40 DR UG MG TA BL ET PA 65 04 05 30 30 00 SO Ac NT 86 -0 -0 .0 00 PE ti OP 20 5- 5- 00 00 RS ve RA 56 20 20 55 ZO 09 17 17 65 FA LE 0 00 [place] LY SO D DR DR UG 40 MG TA B LO 69 04 05 90 30 00 SO Ac RA 31 -1 -0 .0 00 PE ti ZE 50 4- 5- 00 00 RS ve PA 90 20 20 56 M 41 17 17 14 FA 0. 0 14 [place] [address] TA UG BL ET NM 00 02 03 55 10 00 SO Ac ED 05 -2 -2 .0 00 PE ti NI 44 7- 4- 00 00 RS ve SO 72 20 20 55 NE 83 17 17 73 FA 5 1 [address] TA UG BL ET AM 65 02 03 20 10 00 SO Ac OX 86 -1 -1 .0 00 PE ti IC 20 6- 0- 00 00 RS ve IL 01 20 20 55 LI 50 17 17 64 FA N 1 98 [place] [address] UG TA BL ET NM 00 02 03 12 5 00 SO Ac OM 60 -1 -1 0. 00 PE ti ET 31 6- 0- 00 00 RS ve KNIGHT 58 20 20 0 55 ZI 65 17 17 64 FA NE 8 99 KS -D LY M SY DR RU UG P PA 65 02 30 30 00 SO Ac NT 86 -1 -1 .0 00 PE ti OP 20 6- 0- 00 00 RS ve RA 56 20 20 55 ZO 09 17 17 65 FA LE 0 00 [place] LY SO D DR DR UG 40 MG TA B UL 64 01 02 30 30 00 SO Ac OR 76 -3 -2 .0 00 PE ti IC 40 1- 4- 00 00 RS ve 67 20 20 55 80 73 17 17 46 FA 0 36 KS MG LY TA DR BL UG ET LO 45 02 30 30 00 SO Ac RA 80 -2 -1 .0 00 PE ti TA 20 3- 7- 00 00 RS ve DI 65 20 20 54 NE 08 17 17 57 FA 7 07 KS [address] UG TA BL ET PA 00 01 02 30 30 00 SO Ac RO 37 -2 -1 .0 00 PE ti XE 87 3- 7- 00 00 RS ve TI 00 20 20 54 NE 49 17 17 57 FA 3 06 KS HC LY L 40 DR UG MG TA BL ET AR 65 01 02 30 30 00 SO Ac IP 16 -2 -1 .0 00 PE ti IP 20 3- 7- 00 00 RS ve RA 89 20 20 54 ZO 80 17 17 57 FA LE 3 [address] MG UG TA BL ET ZO 00 01 02 30 30 00 SO Ac LP 37 -2 -1 .0 00 PE ti ID 85 6- 7- 00 00 RS ve EM 31 20 20 55 00 17 17 46 FA TA 1 37 KS RT LY RA TE DR UG 10 MG TA BL ET AM 65 12 01 20 10 00 SO Ac OX 86 -2 -1 .0 00 PE ti IC 20 1- 3- 00 00 RS ve IL 01 20 20 55 LI 50 16 17 17 FA N 1 32 KS [address] UG TA BL ET ME 69 12 01 30 30 00 SO Ac LO 09 -2 -1 .0 00 PE ti XI 70 1- 3- 00 00 RS ve CA 15 20 20 55 M 91 16 17 17 FA 15 5 [address] TA UG BL ET NM 00 12 01 12 6 00 SO Ac OM 60 -2 -1 0. 00 PE ti ET 31 1- 3- 00 00 RS ve KNIGHT 58 20 20 0 55 ZI 65 16 17 17 FA NE 8 34 KS -D LY M SY DR RU UG P LO 69 12 01 90 30 00 SO Ac RA 31 -2 -1 .0 00 PE ti ZE 50 1- 3- 00 00 RS ve PA 90 20 20 55 M 41 16 17 17 FA 0. 0 35 KS [address] TA UG BL ET Procedures Procedure DOS Code Location Performer Comment FILTER A7038 [facility] DISPBL 7 HOME HOME USED MEDICAL MEDICAL W/POS EQUIPME EQUIPME ARWAY PRESSURE DEVICE CONTINUOU E0601 [facility] S [...] EQUIPME EQUIPME PRESSURE DEVICE FILTER A7038 [facility] DISPBL 7 HOME HOME USED MEDICAL MEDICAL W/POS EQUIPME EQUIPME ARWAY PRESSURE DEVICE TUBING A7037 [facility] USED WITH 7 HOME HOME POSITIVE MEDICAL MEDICAL AIRWAY EQUIPME EQUIPME PRESSURE DEVICE FILTER A7039 [facility] NON 7 HOME HOME DISPBL MEDICAL MEDICAL USED EQUIPME EQUIPME W/POS ARWAY PRESS DEVICE HUMDIFIR E0562 [facility] HEATED 7 HOME HOME USED MEDICAL MEDICAL W/POS EQUIPME EQUIPME ARWAY PRESSURE DEVICE NASL A7034 [facility] INTRFCE 7 HOME HOME POS ARWAY MEDICAL MEDICAL PRSS EQUIPME EQUIPME DEVC W/WO HEAD STRAP HEADGEAR A7035 [facility] USED 7 HOME HOME W/POSITIV MEDICAL MEDICAL E AIRWAY EQUIPME EQUIPME PRESSURE DEVICE SLEEP STD 00452 [facility] AIRFLOW 7 [facility] HRT INC INC RATE&O2 SAT EFFORT UNATT COLLECTIO 93800 [facility] Gardner VENOUS 6 [facility] BLOOD URGENT VENIPUNCT TREAT URE COMPREHEN 98395 LAB АНДРЕЙ LAB АНДРЕЙ SIVE 6 [facility] HOLDINGS HOLDINGS PANEL HANDLG&/O 96545 [facility] SPARROW R CONVEY 6 [facility] OF SPEC URGENT FOR TR TREAT OFFICE TO LAB GROUND A0425 [facility] [facility] MILE AMBULANCE A0429 [facility] [address] [place] [address] EMERGENCY EMS EMS TRANSPORT RADIOLOGI 02475 [facility] EXAM 6 RADIOLOGY JANIS CHEST 2 VIEWS FRONTAL&L ATERAL RADIOLOGI 36492 [facility] C EXAM 6 [facility] CHEST 2 INC INC VIEWS FRONTAL&L ATERAL EGD 45495 [facility] [place] TRANSORAL 5 REGIONAL GRE BIOPSY PHYSICIAN SINGLE/[place] [address] LEXIE REECE ALL HEAD/BRAI 5 MEDICAL N W/O IMAGING CONTRAST ASS MATERIAL RADIOLOGI 00873 [facility] R[facility] ALL C 5 MEDICAL EXAMINATI IMAGING ON CHEST ASS SINGLE VIEW FRONTAL AMB A0427 [facility] SERVICE 5 [facility] ALS AMBULANCE AMBULANCE EMERGENCY SE SE TRANSPORT LEVEL 1 GROUND A0425 DAHIANA TALBOT MILEAGE 5 [facility] PER AMBULANCE AMBULANCE STATUTE SE SE MILE ECG 85172 [facility] SWINE ROUTINE 5 GUILLERMINA PAT ECG EMERGENCY W/LEAST PHYS 12 LDS [place] [address] [facility] BLOOD/URI [address] [place] [address] C ACID COLLECTIO 65120 [facility] N VENOUS [address] [place] [address] BLOOD VENIPUNCT URE INJECTION J[address]01 DAHIANA [address] ACETONIDE NOS 10 MG THERAPEUT [address] DAHIANA SULTANA [address] PROPHYLAC RURAL TIC/DX HEALTH INJECTION SUBQ/IM INJECTION J3301 DAHIANA ANDREWS [address] [place] [address] ACETONIDE NOS 10 MG THERAPEUT [address] DAHIANA HUNTER [address] PROPHYLAC [facility] TIC/DX HEALTH INJECTION SUBQ/IM Encounters Encounter Start End Date Code Location Performer Type Date OFFICE 13509 [facility] SPARROW OUTPATIEN 7 7 HEALTH T VISIT SOLUTIONS 25 IN MINUTES OFFICE 13732 [facility] SPARROW OUTPATIEN 7 7 HEALTH T VISIT SOLUTIONS 25 IN MINUTES [facility]OSPITAL [facility] - 7 7 [facility] OUTPATIEN INC T OFFICE 97941 DAHIANA SPARROW OUTPATIEN 6 6 [facility] T VISIT URGENT 25 TREAT MINUTES OFFICE 95555 DAHIANA SPARROW OUTPATIEN 6 6 [facility] T VISIT URGENT 25 TREAT MINUTES [facility] GUILLERMINA RADHA VISIT EMERGENCY HIGH PHYS SEVERITY& THREAT FUNCJ OFFICE 13142 DA[facility]IANA FARIASPATIEN 6 6 [facility] T VISIT URGENT 25 TREAT MINUTES HOSPITAL [facility] - 6 6 [facility] OUTPATI[facility] INC T OFFICE 57311 DAHIANA SPARROW OUTPATIEN 6 6 [facility] T VISIT URGENT 25 TREAT MINUTES OFFICE 20858 DAHIANA SPARROW OUTPATIEN 6 6 [facility] T VISIT URGENT 25 TREAT MINUTES OFFICE 43744 DAHIANA SPARROW OUTPATIEN 5 5 [facility] T VISIT URGENT 15 TREAT MINUTES EMERGENCY 61901 [facility] 5 5 GUILLERMINA PAT DEPARTMEN EMERGENCY T VISIT PHYS HIGH/URGE NT SEVERITY [facility] 4 4 HOSPITAL OFFICE 78755 RASHID THERESA [place] OUTPATIEN 4 4 ADULT T VISIT PRIMARY 15 CARE CLI MINUTES EMERGENCY 31596 [facility] 4 4 GUILLERMINA AGNIESZKA DEPARTMEN EMERGENCY T VISIT PHYS MODERATE SEVERITY OFFICE 74428 DAHIANALUIZ [place] OUTPATIEN 4 4 [facility] T VISIT RURAL 15 HEALTH MINUTES OFFICE 27094 DAHIANALUIZ [place] OUTPATIEN 4 4 [facility] T VISIT RURAL 15 HEALTH MINUTES OFFICE 09080 DAHIANALUIZ SPARROW OUTPATIEN 4 4 [facility] T VISIT RURAL 10 HEALTH MINUTES OFFICE 47763 DAHIANALUIZ SPARROW OUTPATIEN 4 4 [facility] 30 RURAL MINUTES [facility]
--- OUTSIDE RECORDS SUMMARY | 2016-09-21 20:30 | External Medical Summary Rpt ---
Author Author , TANYA MARTÍNEZ Address Unknown Phone [email or web address] Care Team Providers Care Plant Clerk Name Role Phone BELEN GARCIA, BELEN Unavailable Unavailable RADHA REECE ALL, REECE ALL Unavailable Unavailable [facility] Unavailable Unavailable SERVICE, [facility] Unavailable Unavailable PHYSICIAN PRA, [facility] PHYSICIAN PRA [facility], Unavailable Unavailable [facility] ARNAUD AGNIESZKA, ARNAUD Unavailable Unavailable AGNIESZKA SULTANA CARMEN, Unavailable Unavailable SULTANA CARMEN BRIGHT JANIS, BRIGHT Unavailable Unavailable JANIS [facility] Unavailable Unavailable [facility], [facility] ANDREWS, ANDREWS Unavailable Unavailable ANDREWS NAN, ANDREWS Unavailable Unavailable [facility] Unavailable Unavailable [facility], [facility] Unavailable Unavailable HOLDINGS, [facility] Unavailable Unavailable HOLDINGS, [facility] Unavailable Unavailable AMBULANCE SE, [facility] SE [facility] Unavailable Unavailable AMBULANCE SE, [facility] AMBULANCE SE [facility] Unavailable Unavailable HEALTH, [facility] HEALTH [facility] Unavailable Unavailable URGENT TREAT, [facility] URGENT TREAT [facility] Unavailable Unavailable EMS, [facility] Unavailable Unavailable EMS, [facility] THERESA BAN, THERESA BAN Unavailable Unavailable [facility], Unavailable Unavailable [facility] Unavailable Unavailable EQU[facility]ME, [facility] Unavailable Unavailable EQU[facility], [facility], [facility], Unavailable [facility]available [facility] Unavailable Unavailable SOLUTIONS IN, [facility] PAT, [facility] Unavailable Unavailable PAT Purpose Continuity of Care Document - 03-16-2013 through 2016 Problems Code Diagnosis DOS Provider Status G4733 OBSTRUCTIVE 07-08-2016 [facility] E[facility] [id number] ARTHRALGIA 04-13-2016 [facility]POR[facility] SOLUTIONS IBULAR IN JOINT J060 ACUTE 04-02-2016 [facility] YNGITIS SOLUTIONS IN J208 ACUTE 04-02-2016 [facility] DUE TO SOLUTIONS OTHER SPEC IN ORGANISMS K210 GASTRO-ESOP 04-02-2016 [facility] REFLUX SOLUTIONS DISEASE W/ IN ESOPHAGITIS R05 COUGH 09-16-2015 [facility] URGENT TREAT R61 GENERALIZED 09-16-2015 [facility] HYPERHIDROS URGENT IS TREAT I10 ESSENTIAL 09-05-2015 LAB АНДРЕЙ PRIMARY [facility] HYPERTENSIO HOLDINGS N J301 ALLERGIC 09-05-2015 [facility] DUE TO URGENT POLLEN TREAT R1031 RIGHT LOWER 09-05-2015 [facility] PAIN URGENT TREAT R195 OTHER FECAL 09-05-2015 LAB АНДРЕЙ [facility] ABNORMALITI HOLDINGS ES J069 ACUTE UPPER 08-27-2015 [facility] N EMERGENCY RESPIRATORY PHYS INFECTION UNSPECIFIED M791 MYALGIA 08-27-2015 [facility] N EMERGENCY PHYS R0602 SHORTNESS 08-27-2015 [facility] R062 WHEEZING 08-27-2015 [facility] EMERGENCY PHYS R509 FEVER 08-27-2015 [facility]NSPECIFIED [facility] EMS R6889 OTHER 08-27-2015 [facility] EMS AND SIGNS R072 PRECORDIAL 03-04-2015 [facility] URGENT TREAT J302 OTHER 02-27-2015 [facility] ALLERGIC URGENT RHINITIS TREAT 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 02-18-2015 [facility] OF URGENT SKIN TREAT H9203 OTALGIA 02-18-2015 [facility] URGENT TREAT J0100 ACUTE 02-18-2015 [facility] MAXILLARY [facility] SINUSITIS URGENT UNSPECIFIED TREAT K219 GASTRO-ESOP 01-09-2015 [facility] DISE[facility] PHYSICIAN WITHOUT PRA ESOPHAGITIS R109 UNSPECIFIED 01-09-2015 [facility] PAIN PHYSICIAN PRA R55 SYNCOPE AND 12-15-2014 [facility] COLLAPSE AMBULANCE SERVICE 72890 ACUTE GOUTY 09-26-2014 [facility] ARTHROPATHY URGENT TREAT 91523 OTHER 09-26-2014 [facility] MALA[facility] FATIGUE URGENT TREAT 5180 PULMONARY 09-07-2014 [facility] 7802 SYNCOPE AND 09-07-2014 [facility] 7804 DIZZINESS 03-08-2014 [facility]ERGENCY GIDDINESS PHYS 9778 POISONING 03-08-2014 [facility] OTHER SPEC N EMERGENCY DRUGS&MEDIC PHYS INAL SUBSTANCES 9779 POISONING 03-08-2014 [facility]UG/MEDICI SE NAL SUBSTANCE E9805 POISONING 03-08-2014 [facility] BY UNS DRUG N EMERGENCY OR PHYS MEDICINE-UN DETERM CAUSE 2749 GOUT, 12-25-2013 [facility] UNSPECIFIED HOSPITAL 47631 GENERALIZED 12-25-2013 [facility] ANXIETY HOSPITAL DISORDER 4779 ALLERGIC 12-25-2013 [facility] RHINITIS HOSPITAL CAUSE UNSPECIFIED 53420 CONJUNCTIVA 09-24-2013 [facility] EMERGENCY HEMORRHAGE PHYS 52230 REFLUX 04-19-2013 [facility] ESOPHAGITIS [facility] 67164 NAUSEA 04-19-2013 [facility] 2724 OTHER AND 03-24-2013 [facility] HYPERLIPIDE [facility] RISA Medications Na ND Rx Da [...] 17 17 76 FA OL 5 89 FL E LY [address] MG UG TA BL ET UL 64 06 07 30 30 00 SO Ac OR 76 -2 -2 .0 00 PE ti IC 40 6- 1- 00 00 RS ve 67 20 20 55 80 73 17 17 46 FA 0 36 FL MG LY TA DR BL UG ET PA 65 06 07 30 30 00 SO Ac NT 86 -2 -2 .0 00 PE ti OP 20 6- 1- 00 00 RS ve RA 56 20 20 55 ZO 09 17 17 65 FA LE 0 00 FL LY SO D DR DR UG 40 MG TA B PA 00 06 07 30 30 00 SO Ac RO 37 -0 -0 .0 00 PE ti XE 87 7- 7- 00 00 RS ve TI 00 20 20 54 NE 49 17 17 57 FA 3 06 FL HC LY L 40 DR UG MG TA BL ET AR 31 05 05 30 30 00 SO Ac IP 72 -0 -2 .0 00 PE ti IP 20 2- 6- 00 00 RS ve RA 83 20 20 56 ZO 03 17 17 27 FA LE 0 [address] MG UG TA BL ET AR 65 04 05 30 30 00 SO Ac IP 16 -0 -0 .0 00 PE ti IP 20 5- 5- 00 00 RS ve RA 89 20 20 54 ZO 80 17 17 57 FA LE 3 [address] MG UG TA BL ET PA 00 04 05 30 30 00 SO Ac RO 37 -0 -0 .0 00 PE ti XE 87 5- 5- 00 00 RS ve TI 00 20 20 54 NE 49 17 17 57 FA 3 06 FL HC LY L 40 DR UG MG TA BL ET PA 65 04 05 30 30 00 SO Ac NT 86 -0 -0 .0 00 PE ti OP 20 5- 5- 00 00 RS ve RA 56 20 20 55 ZO 09 17 17 65 FA LE 0 00 FL LY SO D DR DR UG 40 MG TA B LO 69 04 05 90 30 00 SO Ac RA 31 -1 -0 .0 00 PE ti ZE 50 4- 5- 00 00 RS ve PA 90 20 20 56 M 41 17 17 14 FA 0. 0 14 FL [address] TA UG BL ET VT 00 02 03 55 10 00 SO Ac ED 05 -2 -2 .0 00 PE ti NI 44 7- 4- 00 00 RS ve SO 72 20 20 55 NE 83 17 17 73 FA 5 1 [address] TA UG BL ET AM 65 02 03 20 10 00 SO Ac OX 86 -1 -1 .0 00 PE ti IC 20 6- 0- 00 00 RS ve IL 01 20 20 55 LI 50 17 17 64 FA N 1 98 FL [address] UG TA BL ET VT 00 02 03 12 5 00 SO Ac OM 60 -1 -1 0. 00 PE ti ET 31 6- 0- 00 00 RS ve KNIGHT 58 20 20 0 55 ZI 65 17 17 64 FA NE 8 99 FL -D LY M SY DR RU UG P PA 65 02 30 30 00 SO Ac NT 86 -1 -1 .0 00 PE ti OP 20 6- 0- 00 00 RS ve RA 56 20 20 55 ZO 09 17 17 65 FA LE 0 00 FL LY SO D DR DR UG 40 MG TA B UL 64 01 02 30 30 00 SO Ac OR 76 -3 -2 .0 00 PE ti IC 40 1- 4- 00 00 RS ve 67 20 20 55 80 73 17 17 46 FA 0 36 FL MG LY TA DR BL UG ET LO 45 02 30 30 00 SO Ac RA 80 -2 -1 .0 00 PE ti TA 20 3- 7- 00 00 RS ve DI 65 20 20 54 NE 08 17 17 57 FA 7 07 FL [address] UG TA BL ET PA 00 01 02 30 30 00 SO Ac RO 37 -2 -1 .0 00 PE ti XE 87 3- 7- 00 00 RS ve TI 00 20 20 54 NE 49 17 17 57 FA 3 06 FL HC LY L 40 DR UG MG TA BL ET AR 65 01 02 30 30 00 SO Ac IP 16 -2 -1 .0 00 PE ti IP 20 3- 7- 00 00 RS ve RA 89 20 20 54 ZO 80 17 17 57 FA LE 3 [address] MG UG TA BL ET ZO 00 01 02 30 30 00 SO Ac LP 37 -2 -1 .0 00 PE ti ID 85 6- 7- 00 00 RS ve EM 31 20 20 55 00 17 17 46 FA TA 1 37 FL RT LY RA TE DR UG 10 MG TA BL ET AM 65 12 01 20 10 00 SO Ac OX 86 -2 -1 .0 00 PE ti IC 20 1- 3- 00 00 RS ve IL 01 20 20 55 LI 50 16 17 17 FA N 1 32 FL [address] UG TA BL ET ME 69 12 01 30 30 00 SO Ac LO 09 -2 -1 .0 00 PE ti XI 70 1- 3- 00 00 RS ve CA 15 20 20 55 M 91 16 17 17 FA 15 [address] TA UG BL ET VT 00 12 01 12 6 00 SO Ac OM 60 -2 -1 0. 00 PE ti ET 31 1- 3- 00 00 RS ve KNIGHT 58 20 20 0 55 ZI 65 16 17 17 FA NE 8 34 FL -D LY M SY DR RU UG P LO 69 12 01 90 30 00 SO Ac RA 31 -2 -1 .0 00 PE ti ZE 50 1- 3- 00 00 RS ve PA 90 20 20 55 M 41 16 17 17 FA 0. 0 35 FL [address] TA UG BL [...] EQUIPME EQUIPME PRESSURE DEVICE CONTINUOU E0601 [facility] S 7 HOME HOME POSITIVE MEDICAL MEDICAL [...] AIRWAY EQUIPME EQUIPME PRESSURE DEVICE SLEEP STD 92533 [facility] AIRFLOW 7 [facility] MEM HOSP HRT INC INC RATE&O2 SAT EFFORT UNATT COLLECTIO 99408 [facility] [place] VENOUS 6 [facility] BLOOD URGENT VENIPUNCT TREAT URE COMPREHEN 12926 LAB АНДРЕЙ LAB АНДРЕЙ SIVE 6 [facility] HOLDINGS PANEL HANDLG&/O 48290 [facility] SPARROW R CONVEY 6 [facility] OF SPEC URGENT FOR TR TREAT OFFICE TO LAB GROUND A0425 [facility] [facility] EMS MILE AMBULANCE A0429 [facility] SERVICE [address] [place] [address] EMERGENCY EMS EMS TRANSPORT RADIOLOGI 56086 [facility] EXAM 6 RADIOLOGY JANIS CHEST 2 VIEWS FRONTAL&L ATERAL RADIOLOGI 42990 [facility] C EXAM 6 MEM HOSP [facility]OSP CHEST 2 INC INC VIEWS FRONTAL&L ATERAL EGD 71368 [facility] [place] TRANSORAL 5 REGIONAL GRE BIOPSY PHYSICIAN SINGLE/[place] [address] [facility] REECE ALL HEAD/BRAI 5 MEDICAL N W/O IMAGING CONTRAST ASS MATERIAL RADIOLOGI 75980 [facility] REECE ALL C 5 MEDICAL EXAMINATI IMAGING ON CHEST ASS SINGLE VIEW FRONTAL AMB A0427 DA[facility]IANA TALBOT SERVICE 5 [facility] ALS AMBULANCE AMBULANCE EMERGENCY SE SE TRANSPORT LEVEL 1 GROUND A0425 DAHIANA TALBOT MILEAGE 5 [facility] PER AMBULANCE AMBULANCE STATUTE SE SE MILE ECG 17976 [facility] SWINE ROUTINE 5 GUILLERMINA PAT ECG EMERGENCY W/LEAST PHYS 12 LDS I&[place] [address] [facility] BLOOD/URI [address] [place] [address] C ACID COLLECTIO 78586 [facility] N VENOUS [address] [place] [address] BLOOD VENIPUNCT URE INJECTION J3301 DAHIANA [address] ACETONIDE NOS 10 MG THERAPEUT [address] DAHIANA SULTANA [address] PROPHYLAC RURAL TIC/DX HEALTH INJECTION SUBQ/IM INJECTION J3301 DAHIANA ANDREWS [address] [place] [address] ACETONIDE NOS 10 MG THERAPEUT 9[address] DAHIANA HUNTER [address] PROPHYLAC [facility] TIC/DX HEALTH INJECTION SUBQ/IM Encounters Encounter Start End Date Code Location Performer Type Date OFFICE 91261 [facility] OUTPATIEN 7 7 HEALTH T VISIT SOLUTIONS 25 IN MINUTES OFFICE 97933 [facility] SPARROW OUTPATIEN 7 7 HEALTH T VISIT SOLUTIONS 25 IN MINUTES [facility] 7 [facility] OUTPATIEN INC T OFFICE 31933 DA[facility] SPARROW OUTPATIEN 6 6 [facility] T VISIT URGENT 25 TREAT MINUTES OFFICE 84023 DA[facility]NA SPARROW OUTPATIEN 6 6 [facility] T VISIT URGENT 25 TREAT MINUTES [facility] GUILLERMINA RADHA VISIT EMERGENCY HIGH PHYS SEVERITY& THREAT FUNCJ OFFICE 17884 DA[facility]NA FARIASPATIEN 6 6 [facility] T VISIT URGENT 25 TREAT MINUTES HOSPITAL [facility] - 6 6 [facility] OUTPATIEN INC T OFFICE 03803 DAHIANA SPARROW OUTPATIEN 6 6 [facility] T VISIT URGENT 25 TREAT MINUTES OFFICE 67376 DAHIANA SPARROW OUTPATIEN 6 6 [facility] T VISIT URGENT 25 TREAT MINUTES OFFICE 49015 DAHIANA SPARROW OUTPATIEN 5 5 [facility] T VIS[facility] URGENT 15 TREAT MINUTES EMERGENCY 72358 [facility] 5 5 GUILLERMINA PAT DEPARTMEN EMERGENCY T VISIT PHYS HIGH/URGE NT SEVERITY [facility]OSP[facility] 4 4 HOSPITAL OFFICE 64303 RASHID THERESA [place] OUTPATIEN 4 4 ADULT T VISIT PRIMARY 15 CARE CLI MINUTES EMERGENCY 12249 [facility] 4 4 GUILLERMINA AGNIESZKA DEPARTMEN EMERGENCY T VISIT PHYS MODERATE SEVERITY OFFICE 34764 [facility]IANALUIZ [place] OUTPATIEN 4 4 [facility] T VISIT RURAL 15 HEALTH MINUTES OFFICE 31028 DAHIANALUIZ [place] OUTPATIEN 4 4 [facility] CARMEN T VISIT RURAL 15 HEALTH MINUTES OFFICE 30491 DAHIANALUIZ SPARROW OUTPATIEN 4 4 [facility] NAN T VISIT RURAL 10 HEALTH MINUTES OFFICE 38170 DAHIANALUIZ SPARROW OUTPATIEN 4 4 [facility] NAN T NEW 30 RURAL MINUTES [facility]
--- OUTSIDE RECORDS SUMMARY | 2016-09-21 20:31 | External Medical Summary Rpt ---
Author Author , TANYA MARTÍNEZ Address Unknown Phone [email or web address] Immunization Name Date Rout CVX Reac Dose Comm Prov Is Faci e tion ent ider Refu lity Give sed n Hep 05-16 8 999 Hist H191 No H191 B, 03-06 oric ped/ 00 al adol Info rmat ion - Sour ce Unsp ecif ied Td 05-16 9 999 Hist H191 No H191 (henrik 03-06 oric lt), 00 al Info adso rmat rbed ion - Sour ce Unsp ecif ied
--- OUTSIDE RECORDS SUMMARY | 2016-09-21 20:31 | External Medical Summary Rpt ---
Author Author [employer], [employer] Organization [employer] Address Unknown Phone Unavailable Results Comprehensive metabolic 2000 panel in Serum or Plasma Observa Value Referen Units Interpr Notes Date tion ce etation Range Albumin/G 1.1 - 1.8 No Low No Sep 20 lobulin informati informati 2017 [Mass on in on in 10:51 PM ratio] in source source Serum or data data Plasma Albumin 3.4 - 5.0 gm/dL Normal No Sep 20 [Mass/vol informati 2016 ume] in on in 10:51 PM Serum or source Plasma data Alkaline 46 - 116 U/L Normal No Sep 20 phosphata informati 2017 se on in 10:51 PM [Enzymati source c data activity/ volume] in Serum or Plasma Bilirubin 0.2 - 1.0 mg/dL Normal No Sep 20 .total informati 2016 [Mass/vol on in 10:51 PM ume] in source Serum or data Plasma Urea 7 - 18 mg/dL Normal No Sep 20 nitrogen informati 2016 [Mass/vol on in 10:51 PM ume] in source Serum or data Plasma Calcium 8.5 - mg/dL Normal No Sep 20 [Mass/vol 10.1 informati 2016 ume] in on in 10:51 PM Serum or source Plasma data Chloride 98 - 107 mmoL/L Normal No Sep 20 [Moles/vo informati 2017 lume] in on in 10:51 PM Serum or source Plasma data Carbon 21.0 - mmoL/L Normal No Sep 20 dioxide, 32.0 informati 2017 total on in 10:51 PM [Moles/vo source lume] in data Serum or Plasma Creatinin 0.70 - mg/dL Normal No Sep 20 e 1.30 informati 2017 [Mass/vol on in 10:51 PM ume] in source Serum or data Plasma Creatinin 50 - 200 ML/MIN Normal No Sep 20 e renal informati 2017 clearance on in 10:51 PM source predicted data by Cockcroft -Gault formula Estimated >60 ML/MIN No REFERENCE Sep 20 informati RANGE: 2017 glomerula on in >60 10:51 PM r source ML/MIN/1. filtratio data 73 SQUARE n rate METERSIf (GF this patient is -A merican, then multiply theresult by 1.210. Globulin 1.3 - 3.2 gm/dL High No Sep 20 [Mass/vol informati 2016 ume] in on in 10:51 PM Serum source data Glucose 74 - 106 mg/dL High No Sep 20 [Mass/vol informati 2016 ume] in on in 10:51 PM Serum or source Plasma data Potassium 3.5 - 5.1 mmoL/L Normal No Sep 202016 [Moles/vo on in 10:51 PM lume] in source Serum or data Plasma Sodium 136 - 145 mmoL/L Normal No Sep 20 [Moles/vo informati 2016 lume] in on in 10:51 PM Serum or source Plasma data Aspartate 15 - 37 U/L Normal No Sep 202016 aminotran on in 10:51 PM sferase source [Enzymati data c activity/ volume] in Serum or Plasma Alanine 12 - 78 U/L Normal No Sep 20 aminotran 2016 sferase on in 10:51 PM [Enzymati source c data activity/ volume] in Serum or Plasma Protein 6.4 - 8.2 gm/dL High No Sep 20 [Mass/vol informati 2016 ume] in on in 10:51 PM Serum or source Plasma data CBC W Auto Differential panel in Blood Observa Value Referen Units Interpr Notes Date tion ce etation Range Basophils 0 - 0.2 K/MM3 Normal No Sep 202016 [#/volume on in 10:51 PM ] in source Blood by data Automated count Basophils 0.1 - 2.0 % Normal No Sep 20 /2016 leukocyte on in 10:51 PM s in source Blood by data Automated count Eosinophi 0.0 - 0.4 K/mm3 Normal No Sep 20 ls 2016 [#/volume on in 10:51 PM ] in source Blood by data Automated count Eosinophi 0.1 - % Normal No Sep 20 ls/100 12.0 2016 leukocyte on in 10:51 PM s in source Blood by data Automated count Granulocy 1.3 - 8.0 K/mm3 Normal No Sep 20 lauryn 2016 [#/volume on in 10:51 PM ] in source Blood by data Automated count Granulocy 37.0 - % Normal No Sep 20 lauryn/100 80.0 inform2016 leukocyte on in 10:51 PM s in source Blood by data Automated count Hematocri 42.0 - % Normal No Sep 20 t [Volume 52.0 2016 on in 10:51 PM Fraction] source of Blood data Hemoglobi 14.1 - g/dL Normal No Sep 20 n 18.0 inform2016 [Mass/vol on in 10:51 PM ume] in source Blood data Lymphocyt 0.7 - 4.5 K/mm3 Normal No Sep 20 es inform2016 [#/volume on in 10:51 PM ] in source Unspecifi data ed specimen by Automated count Lymphocyt 10 - 50 % Normal No Sep 20 es 2016 [#/volume on in 10:51 PM ] in source Unspecifi data ed specimen by Automated count Erythrocy 27 - 31.2 pg Normal No Sep 20 te mean 2016 corpuscul on in 10:51 PM ar source hemoglobi data n [Entitic mass] Erythrocy 31.8 - g/dl Normal No Sep 20 te mean 35.4 2016 corpuscul on in 10:51 PM ar source hemoglobi data n concentra tion [Mass/vol ume] by Automated count Erythrocy 82.2 - fl Low No Sep 20 te mean 97.8 2016 corpuscul on in 10:51 PM ar volume source [Entitic data volume] by Automated count Monocytes 0.1 - 1.0 K/mm3 Normal No Sep 202016 [#/volume on in 10:51 PM ] in source Blood by data Automated count Monocytes 1.7 - 9.3 % Normal No Sep 20 /100 informati 2017 leukocyte on in 10:51 PM s in source Blood by data Automated count Platelet 7.4 - fl Normal No Sep 20 mean 10.4 inform2016 volume on in 10:51 PM [Entitic source volume] data in Blood by Automated count Platelets 142 - 424 K/mm3 Normal No Sep 20 inform2016 [#/volume on in 10:51 PM ] in source Blood data Erythrocy 4.6 - 6.2 M/mm3 Normal No Sep 20 lauryn 2016 [#/volume on in 10:51 PM ] in source Amniotic data fluid Erythrocy 11.5 - % Normal No Sep 20 te 17.5 2016 distribut on in 10:51 PM ion width source [Entitic data volume] by Automated count Leukocyte 4.8 - K/MM3 Normal No Sep 20 s 10.8 inform2016 [#/volume on in 10:51 PM ] in source Blood data Urinalysis dipstick W Reflex Microscopic panel in Urine Observa Value Referen Units Interpr Notes Date tion ce etation Range Appeara CLEAR CLEAR No No No Aug 24 nce of informa informa informa 2016 Urine tion in tion in tion in 2:20 AM source source source data data data Bilirub NEGATIV NEG No No BILIRUB Aug 24 in E informa informa IN 2016 [Presen tion in tion in CONFIRM 2:20 AM ce] in source source ED WITH Urine data data by Test ICTOTES strip T Erythro NEGATIV NEG No No No Aug 24 cytes E informa informa informa 2016 [Presen tion in tion in tion in 2:20 AM ce] in source source source Urine data data data Color YELLOW YELLOW No No No Aug 24 of informa informa informa 2016 Urine tion in tion in tion in 2:20 AM source source source data data data Glucose NEG No No No Aug 24 [Mass/vol informati informati informati 2016 2:20 ume] in on in on in on in AM Urine by source source source Test data data data strip Ketones NEGATIV NEG mg/dL No No Aug 24 E informa informa 2016 [Presen tion in tion in 2:20 AM ce] in source source Urine data data by Automat ed test strip Mucus NEGATIV NEG No No No Aug 24 [Presen E informa informa informa 2016 ce] in tion in tion in tion in 2:20 AM Urine source source source sedimen data data data t by Light microsc opy Nitrite NEGATIV NEG No No No Aug 24 E informa informa informa 2016 [Presen tion in tion in tion in 2:20 AM ce] in source source source Urine data data data by Test strip pH of 5.0 - 8.5 No Normal No Aug 24 Urine informati informati 2016 2:20 on in on in AM source source data data Protein NEG mg/dL High No Aug 24 [Mass/vol informati 2017 2:20 ume] in on in AM Urine by source Automated data test strip Specific 1.005 - No Normal No Aug 24 gravity 1.030 informati informati 2017 2:20 of Urine on in on in AM source source data data Urobili 0.2 NEG E.U./dL No No Aug 24 nogen informa informa 2016 [Presen tion in tion in 2:20 AM ce] in source source Urine data data by Test strip Urinalysis dipstick W Reflex Microscopic panel in Urine Observa Value Referen Units Interpr Notes Date tion ce etation Range Appeara CLEAR CLEAR No No No Aug 24 nce of informa informa informa 2017 Urine tion in tion in tion in 2:20 AM source source source data data data Amorpho TRACE NONE No No No Aug 24 us informa informa informa 2017 sedimen tion in tion in tion in 2:20 AM t source source source [Presen data data data ce] in Urine sedimen t by Light microsc opy Bilirub NEGATIV NEG No No BILIRUB Aug 24 in E informa informa IN 2016 [Presen tion in tion in CONFIRM 2:20 AM ce] in source source ED WITH Urine data data by Test ICTOTES strip T Erythro NEGATIV NEG No No No Aug 24 cytes E informa informa informa 2016 [Presen tion in tion in tion in 2:20 AM ce] in source source source Urine data data data Color YELLOW YELLOW No No No Aug 24 of informa informa informa 2017 Urine tion in tion in tion in 2:20 AM source source source data data data Glucose NEG No No No Aug 24 [Mass/vol informati informati informati 2017 2:20 ume] in on in on in on in AM Urine by source source source Test data data data strip Hyaline 5-10 NONE #/lpf No No Aug 24 casts informa informa 2016 [Presen tion in tion in 2:20 AM ce] in source source Urine data data sedimen t by Light microsc opy Ketones NEGATIV NEG mg/dL No No Aug 24 E informa informa 2016 [Presen tion in tion in 2:20 AM ce] in source source Urine data data by Automat ed test strip Mucus NEGATIV NEG No No No Aug 24 [Presen E informa informa informa 2017 ce] in tion in tion in tion in 2:20 AM Urine source source source sedimen data data data t by Light microsc opy Mucus 2+ NONE No No No Aug 24 [Presen informa informa informa 2016 ce] in tion in tion in tion in 2:20 AM Urine source source source sedimen data data data t by Light microsc opy Nitrite NEGATIV NEG No No No Aug 24 E informa informa informa 2017 [Presen tion in tion in tion in 2:20 AM ce] in source source source Urine data data data by Test strip pH of 5.0 - 8.5 No Normal No Aug 24 Urine informati informati 2017 2:20 on in on in AM source source data data Protein NEG mg/dL High No Aug 24 [Mass/vol informati 2017 2:20 ume] in on in AM Urine by source Automated data test strip Specific 1.005 - No Normal No Aug 24 gravity 1.030 informati informati 2017 2:20 of Urine on in on in AM source source data data Epithel 5-10 OCC #/hpf No No Aug 24 ial informa informa 2017 cells.s tion in tion in 2:20 AM quamous source source data data [Presen ce] in Urine sedimen t by Microsc opy high power field Urobili 0.2 NEG E.U./dL No No Aug 24 nogen informa informa 2016 [Presen tion in tion in 2:20 AM ce] in source source Urine data data by Test strip Leukocy [5 O wbc/hpf No No Aug 24 lauryn wbc/hpf informa informa 2016 [#/volu ; 10 tion in tion in 2:20 AM me] in wbc/hpf source source Urine ] data data Amylase [Enzymatic activity/volume] in Serum or Plasma Observa Value Referen Units Interpr Notes Date tion ce etation Range Amylase 25 - 115 U/L Normal No Aug 24 [Enzymati informati 2016 c on in 12:20 AM activity/ source volume] data in Serum or Plasma Comprehensive metabolic 2000 panel in Serum or Plasma Observa Value Referen Units Interpr Notes Date tion ce etation Range Albumin/G 1.1 - 1.8 No Low No Aug 24 lobulin informati informati 2016 [Mass on in on in 12:20 AM ratio] in source source Serum or data data Plasma Albumin 3.4 - 5.0 gm/dL Normal No Aug 24 [Mass/vol informati 2017 ume] in on in 12:20 AM Serum or source Plasma data Alkaline 46 - 116 U/L Normal No Aug 24 phosphata informati 2016 se on in 12:20 AM [Enzymati source c data activity/ volume] in Serum or Plasma Bilirubin 0.2 - 1.0 mg/dL Normal No Aug 24 .total informati 2016 [Mass/vol on in 12:20 AM ume] in source Serum or data Plasma Urea 7 - 18 mg/dL Normal No Aug 24 nitrogen informati 2016 [Mass/vol on in 12:20 AM ume] in source Serum or data Plasma Calcium 8.5 - mg/dL Normal No Aug 24 [Mass/vol 10.1 informati 2016 ume] in on in 12:20 AM Serum or source Plasma data Chloride 98 - 107 mmoL/L Normal No Aug 24 [Moles/vo informati 2016 lume] in on in 12:20 AM Serum or source Plasma data Carbon 21.0 - mmoL/L Normal No Aug 24 dioxide, 32.0 informati 2017 total on in 12:20 AM [Moles/vo source lume] in data Serum or Plasma Creatinin 0.70 - mg/dL Normal No Aug 24 e 1.30 informati 2016 [Mass/vol on in 12:20 AM ume] in source Serum or data Plasma Creatinin 50 - 200 ML/MIN Normal No Aug 24 e renal informati 2017 clearance on in 12:20 AM source predicted data by Cockcroft -Gault formula Estimated >60 ML/MIN No REFERENCE Aug 24 informati RANGE: 2017 glomerula on in >60 12:20 AM r source ML/MIN/1. filtratio data 73 SQUARE n rate METERSIf (GF this patient is -A merican, then multiply theresult by 1.210. Globulin 1.3 - 3.2 gm/dL High No Aug 24 [Mass/vol informati 2017 ume] in on in 12:20 AM Serum source data Glucose 74 - 106 mg/dL High No Aug 24 [Mass/vol informati 2017 ume] in on in 12:20 AM Serum or source Plasma data Potassium 3.5 - 5.1 mmoL/L Normal No Aug 242016 [Moles/vo on in 12:20 AM lume] in source Serum or data Plasma Sodium 136 - 145 mmoL/L Normal No Aug 24 [Moles/vo inform2016 lume] in on in 12:20 AM Serum or source Plasma data Aspartate 15 - 37 U/L High No Aug 242016 aminotran on in 12:20 AM sferase source [Enzymati data c activity/ volume] in Serum or Plasma Alanine 12 - 78 U/L High No Aug 24 aminotran 2016 sferase on in 12:20 AM [Enzymati source c data activity/ volume] in Serum or Plasma Protein 6.4 - 8.2 gm/dL High No Aug 24 [Mass/vol ati 2016 ume] in on in 12:20 AM Serum or source Plasma data Lipase [Enzymatic activity/volume] in Serum or Plasma Observa Value Referen Units Interpr Notes Date tion ce etation Range Lipase 73 - 393 U/L Normal No Aug 24 [Enzymati informati 2016 c on in 12:20 AM activity/ source volume] data in Serum or Plasma CBC W Auto Differential panel in Blood Observa Value Referen Units Interpr Notes Date tion ce etation Range Basophils 0 - 0.2 K/MM3 Normal No Aug 242016 [#/volume on in 12:20 AM ] in source Blood by data Automated count Basophils 0.1 - 2.0 % Normal No Aug 242016 leukocyte on in 12:20 AM s in source Blood by data Automated count Eosinophi 0.0 - 0.4 K/mm3 Normal No Aug 24 ls 2016 [#/volume on in 12:20 AM ] in source Blood by data Automated count Eosinophi 0.1 - % Normal No Aug 24 ls/100 12.0 2016 leukocyte on in 12:20 AM s in source Blood by data Automated count Granulocy 1.3 - 8.0 K/mm3 Normal No Aug 24 lauryn 2016 [#/volume on in 12:20 AM ] in source Blood by data Automated count Granulocy 37.0 - % Normal No Aug 24 lauryn/100 80.0 2016 leukocyte on in 12:20 AM s in source Blood by data Automated count Hematocri 42.0 - % Normal No Aug 24 t [Volume 52.0 2016 on in 12:20 AM Fraction] source of Blood data Hemoglobi 14.1 - g/dL Normal No Aug 24 n 18.0 2016 [Mass/vol on in 12:20 AM ume] in source Blood data Lymphocyt 0.7 - 4.5 K/mm3 Normal No Aug 24 es 2016 [#/volume on in 12:20 AM ] in source Unspecifi data ed specimen by Automated count Lymphocyt 10 - 50 % Normal No Aug 24 es 2016 [#/volume on in 12:20 AM ] in source Unspecifi data ed specimen by Automated count Erythrocy 27 - 31.2 pg Low No Aug 24 te mean 2016 corpuscul on in 12:20 AM ar source hemoglobi data n [Entitic mass] Erythrocy 31.8 - g/dl Normal No Aug 24 te mean 35.4 2016 corpuscul on in 12:20 AM ar source hemoglobi data n concentra tion [Mass/vol ume] by Automated count Erythrocy 82.2 - fl Low No Aug 24 te mean 97.8 2016 corpuscul on in 12:20 AM ar volume source [Entitic data volume] by Automated count Monocytes 0.1 - 1.0 K/mm3 Normal No Aug 242016 [#/volume on in 12:20 AM ] in source Blood by data Automated count Monocytes 1.7 - 9.3 % Normal No Aug 24 /100 2016 leukocyte on in 12:20 AM s in source Blood by data Automated count Platelet 7.4 - fl Normal Aug 24 mean 10.4 2016 volume on in 12:20 AM [Entitic source volume] data in Blood by Automated count Platelets 142 - 424 K/mm3 Normal No Aug 242016 [#/volume on in 12:20 AM ] in source Blood data Erythrocy 4.6 - 6.2 M/mm3 Normal No Aug 24 lauryn 2016 [#/volume on in 12:20 AM ] in source Amniotic data fluid Erythrocy 11.5 - % Normal No Aug 24 te 17.5 2016 distribut on in 12:20 AM ion width source [Entitic data volume] by Automated count Leukocyte 4.8 - K/MM3 High No Aug 24 s 10.8 2016 [#/volume on in 12:20 AM ] in source Blood data DIARRHEA PANEL,PCR Observa Value Referen Units Interpr Notes Date tion ce etation Range Adenovi NOT NOT No No No Aug 24 isaiah DETECTE DETECTE informa informa informa 2017 40+41 D tion in tion in tion in 12:17 Ag source source source AM [Presen data data data ce] in Stool Aeromon NOT NOT No No No Aug 24 as DETECTE DETECTE informa informa informa 2017 salmoni D tion in tion in tion in 12:17 onel source source source AM [Presen data data data ce] in Unspeci fied specime n Astrovi NOT NOT No No No Aug 24 isaiah DETECTE DETECTE informa informa informa 2016 [Presen D tion in tion in tion in 12:17 ce] in source source source AM Stool data data data by Electro n microsc opy Campylo NOT NOT No No No Aug 24 bacter DETECTE DETECTE informa informa informa 2016 sp Ab D tion in tion in tion in 12:17 [Presen source source source AM ce] in data data data Serum Clostri DETECTE NOT No Abnorma RESULTS Aug 24 dium D DETECTE informa l CALLED 2017 diffici tion in TO: K 12:17 le source CHRIS AM toxin data RN A+B [Presen 7 0215 ce] in [place], Stool Niranjan Cryptos NOT NOT No No No Aug 24 poridiu DETECTE DETECTE informa informa informa 2017 m sp Ag D tion in tion in tion in 12:17 source source source AM [Presen data data data ce] in Unspeci fied specime n Cyclosp NOT NOT No No No Aug 24 ora DETECTE DETECTE informa informa informa 2017 cayetan D tion in tion in tion in 12:17 elizabeth source source source AM [Presen data data data ce] in Unspeci fied specime n Escheri NOT NOT No No No Aug 24 richard DETECTE DETECTE informa informa informa 2017 coli D tion in tion in tion in 12:17 [Presen source source source AM ce] in data data data Unspeci fied specime n by Culture FDA method Escheri NOT NOT No No No Aug 24 richard DETECTE DETECTE informa informa informa 2017 coli D tion in tion in tion in 12:17 [Presen source source source AM ce] in data data data Unspeci fied specime n by Culture FDA method Escheri NOT NOT No No No Aug 24 richard DETECTE DETECTE informa informa informa 2016 coli D tion in tion in tion in 12:17 Shiga-l source source source AM judd data data data toxin 1 assa Escheri NOT NOT No No No Aug 24 richard DETECTE DETECTE informa informa informa 2016 coli D tion in tion in tion in 12:17 [id number] source source source AM data data data [Presen ce] in Stool by Organis m specifi c culture Entamoe NOT NOT No No No Aug 24 ba DETECTE DETECTE informa informa informa 2016 histoly D tion in tion in tion in 12:17 cirilo source source source AM [Presen data data data ce] in Stool by Trichro me stain Giardia NOT NOT No No No Aug 24 DETECTE DETECTE informa informa informa 2016 lamblia D tion in tion in tion in 12:17 Ag source source source AM [Presen data data data ce] in Stool Norovir NOT NOT No No No Aug 24 us Ag DETECTE DETECTE informa informa informa 2016 [Presen D tion in tion in tion in 12:17 ce] in source source source AM Stool data data data Stool NOT NOT No No No Aug 24 Plesiom DETECTE DETECTE informa informa informa 2016 onas D tion in tion in tion in 12:17 shigell source source source AM oides data data data DNA detec Rotavir NOT NOT No No No Aug 24 us RNA DETECTE DETECTE informa informa informa 2017 detecti D tion in tion in tion in 12:17 on by source source source AM probe data data data and tar Salmone NOT NOT No No No Aug 24 lla sp DETECTE DETECTE informa informa informa 2017 DNA D tion in tion in tion in 12:17 [Identi source source source AM fier] data data data in Unspeci fied specime n by Probe & target amplifi cation method Caliciv NOT NOT No No No Aug 24 irus DETECTE DETECTE informa informa informa 2016 [Identi D tion in tion in tion in 12:17 fier] source source source AM in data data data Stool by Electro n microsc opy Escheri NOT NOT No No No Aug 24 richard DETECTE DETECTE informa informa informa 2016 coli D tion in tion in tion in 12:17 [Presen source source source AM ce] in data data data Unspeci fied specime n by Culture FDA method Escheri NOT NOT No No No Aug 24 richard DETECTE DETECTE informa informa informa 2016 coli D tion in tion in tion in 12:17 SXT source source source AM gene+H7 data data data gene [Identi fier] in Unspeci fied specime n by Probe & target amplifi cation method Vibrio NOT NOT No No No Aug 24 cholera DETECTE DETECTE informa informa informa 2016 e DNA D tion in tion in tion in 12:17 [Presen source source source AM ce] in data data data Unspeci fied specime n by Probe & target amplifi cation method Vibrio NOT NOT No No No Aug 24 sp DNA DETECTE DETECTE informa informa informa 2016 [Identi D tion in tion in tion in 12:17 fier] source source source AM in data data data Unspeci fied specime n by Probe & target amplifi cation method Vibrio NOT NOT No No No Aug 24 sp DETECTE DETECTE informa informa informa 2017 identif D tion in tion in tion in 12:17 ied in source source source AM Stool data data data by Blue m specifi c culture
--- OUTSIDE RECORDS SUMMARY | 2016-09-21 20:31 | External Medical Summary Rpt ---
Author Author , TANYA MARTÍNEZ Address Unknown Phone Immunization Name Date Rout CVX Reac Dose [...]
== END 2016-09-21 00:25 | disposition home or self-care (01) ==
LOC: ER 22:26
PROVIDERS: Emergency Medicine
DX: M51.16 Intervertebral disc disorders with radiculopathy, lumbar region (principal); R31.21 Asymptomatic microscopic hematuria; F41.8 Other specified anxiety disorders; K21.9 Gastro-esophageal reflux disease without esophagitis; I10 Essential (primary) hypertension
CPT/HCPCS: J2405